=== PATIENT | female | born 1955 | race Caucasian/White ===

== ENCOUNTER 2021-01-16 15:25 | Inpatient (IN) ==
[2021-01-16] MEDS ORDERED: SODIUM CHLORIDE 0.9% 1000ML 1,000 ML IV ONE (16:16)
--- NOTE | 2021-01-16 16:22 | Emergency Department Note ---
Impression & Plan Stroke-like symptoms, History of stroke, History of carotid stenosis, Hypomagnesemia ED Provider Note NAME: MIAN WILLIAMSON AGE: 65 SEX: F ARRIVES VIA: Ambulance INFORMANT: Patient, Daughter ED PROVIDER(S): Puma Richmond MD CHIEF COMPLAINT: Stroke-like symptoms. PLAN: Disposition: Admit MEDICAL DECISION MAKING: The patient is a pleasant 65-year-old woman with a past medical history of CVA, carotid artery stenosis, hypertension, hyperlipidemia who presents emerge department, by her daughter with concern for strokelike symptoms which occurred when they were driving from the home in [place] to [place] to need help with other family but the daughter noticed while driving that the patient was awake but not responding to her questions and appeared to have increasing left sided facial droop with some slight drooling which suddenly resolved after 15 minutes. The patient's symptoms occur in the setting of the daughter reporting that she felt her left face was slightly more droopy than usual but thought maybe it was related to her poor night sleep and so the last known well is unclear. The daughter further reports that they were seen in urgent care last week in [place] for the patient's complaint of left facial numbness and tingling. Otherwise the patient's baseline does involve some chronic right upper and right lower extremity weakness for which she walks with a cane. Daughter reports that she also had some aphasia when she had her stroke in 2016 but this mostly resolved though from time to time will have difficulty responding to questions. At this time the patient is near her baseline with the exception of being unable to smile upon command which appears to be related to a degree of inability to understand though she follows all other commands. On arrival the patient is in no acute distress, afebrile stable vital signs. She appears clinically dry. She has difficulty it seems understanding her request to smile and she attempts to put her lips together to blow air. But otherwise she answers all questions appropriately. She has subtle residual right upper and right lower extremity weakness compared to left but is 4+/5. Given unclear last known well, with symptoms ongoing for days, no indication for stroke alert for TPA or endovascular treatment. EKG without overt acute ischemia. CXR negative for acute cardiopulmonary process. WBC and platelets wnl. H/H 11.4/33.7 without prior values for comparison. Glucose 170s and Chemistry without acidosis. Magnesium 1.7 and otherwise electr olytes unremarkable. LFTs without significant abnormality. Troponin negative/undetectable. UA pending. Covid-19 PCR negative. Influenza and RSV PCR negative. CT head without acute ICH or ischemia. Old large left MCA territory infarct appreciated. CTA head and neck performed and demonstrates extensive cerebrovascular disease but without large vessel occlusion. Patient and daughter agree with plan for admission for further stroke evaluation. Case was discussed with Dr. Alcantara [facility] hospitalist, who will evaluate the patient for admission. Triage Nursing notes reviewed and agree them. Prior medical records reviewed Vital Signs: reviewed and remarkable for no significant abnormalities Differential diagnosis: Infection, dehydration, metabolic abnormality, hypo/hyperglycemia, electrolyte disturbance, anemia, hypoxia, cardiac sources, intracerebral event, toxicologic, neurologic, as well as other pathologies. ER treatment provided: See below. Diagnostics interpreted by me: ECG: Sinus tachycardia, 109 bpm, no ectopy, RBBB, no overt ST elevation or depression. Cardiac Monitoring: An order for continuous cardiac monitoring was placed and demonstrated Sinus tachycardia, 109 bpm, no ectopy. Laboratory studies: See below Imaging studies: See below Consultation(s): Case was discussed with Dr. Alcantara, [facility] hospitalist, who will evaluate the patient for admission. HPI: The patient is a pleasant 65-year-old woman with a past medical history of CVA, carotid artery stenosis, hypertension, hyperlipidemia who presents emerge department, by her daughter with concern for strokelike symptoms which occurred when they were driving from the home in [place] to [place] to need help with other family but the daughter noticed while driving that the patient was awake but not responding to her questions and appeared to have increasing left sided facial droop with some slight drooling which suddenly resolved after 15 minutes. The patient's symptoms occur in the setting of the daughter reporting that she felt her left face was slightly more droopy than usual but thought maybe it was related to her poor night sleep and so the last known well is unclear. The daughter further reports that they were seen in urgent care last week in [place] for the patient's complaint of left facial numbness and tingling. Otherwise the patient's baseline does involve some chronic right upper and right lower extremity weakness for which she walks with a cane. Daughter reports that she also had some aphasia when she had her stroke in 2016 but this mostly resolved though from time to time will have difficulty respo nding to questions. At this time the patient is near her baseline with the exception of being unable to smile upon command which appears to be related to a degree of inability to understand though she follows all other commands. ROS: See above HPI for pertinent positives & negatives. A total of 10 systems reviewed and were otherwise negative. PAST MEDICAL HISTORY:See Below PAST SURGICAL HISTORY:See Below FAMILY HISTORY:See Below SOCIAL HISTORY:See Below HOME MEDICATIONS:See Below ALLERGIES:See Below VITALS:See Below PHYSICAL EXAMINATION: GENERAL: Awake, alert, well-appearing, in no distress HENT: Normocephalic, atraumatic. Oropharynx with dry mucous membranes and otherwise unremarkable. EYES: Normal conjunctiva. Sclera non-icteric. EOMI. No nystamgus. PEARRL. NECK: Supple. No nuchal rigidity. FROM. No JVD. RESPIRATORY: Clear to auscultation. CARDIAC: Tachycardic rate, normal rhythm. Extremities warm and well perfused. Pulses equal. ABDOMEN: Soft, non-distended. No tenderness to palpation. No rebound or guarding. No masses. RECTAL: Deferred. MUSCULOSKELETAL: Chest examination reveals no tenderness. The back is symmetrical on inspection without obvious abnormality. There is no CVA tenderness to palpation. No joint edema. LOWER EXTREMITIES: Calves are equal size bilaterally and non-tender. No edema. No discoloration. NEURO: Apparent difficulty understanding request to smile and she attempts to put her lips together to blow air. Subtle residual right upper and right lower extremity weakness compared to left but is 4+/5. LUE and LLE 5/5 strength. Mild blunting of left nasolabial fold at rest. No overt word finding difficulty. SKIN: No rash or jaundice noted. Puma Richmond MD Past Med/Surg History Medical History Essential (primary) hypertension History of carotid stenosis History of stroke 09/2016 - MCA territory on left; resulting right-sided hemiparesis Hyperlipidemia Tobacco dependence Surgical History History of appendectomy S/P carotid endarterectomy bilateral - 2016 - [facility] Family History Mother No problems noted. Father , 70s Parkinsons disease Social History Smoking Status: Current every day smoker Years Smoked: 30; Cigarettes Per Day: 1/2 pack; Hx Alcohol Use: No Hx Substance Use: No Preferred Language: Sinhala Communication Ability: Effective Beliefs That Will Affect Care: None marital status: marital status details: 2x's Current Living Situation: Spouse and Family Current Living Situation Comment: lives with 2nd & daughter in [facility]; originally from [place] current occupational status: retired current occupation: farm work How many Children do You have: 3 How many Children do You have Comment: 2 sons; 1 daughter Other Information That Helps Us Care for You: No Feels Safe at Home: Yes Safety Concerns: Feels Safe At This Time Assistive Devices: Cane Allergies Allergies Allergy/AdvReac Type Severity Reaction Status Date / Time No Known Allergies Allergy Unverified 01/16/21 15:53 Home Meds Home Medications Medication Instructions Recorded Confirmed amitriptyline 50 mg PO HS 01/16/21 01/16/21 amlodipine-benazepril 1 cap PO DAILY 01/16/21 01/16/21 aspirin 325 mg PO DAILY 01/16/21 01/16/21 atorvastatin 80 mg PO DAILY 01/16/21 01/16/21 docusate sodium 100 mg PO BID 01/16/21 01/16/21 fexofenadine 180 mg PO DAILY 01/16/21 01/16/21 fluticasone propionate 2 spray INTRANASAL DAILY 01/16/21 01/16/21 furosemide 40 mg PO DAILY PRN 01/16/21 01/16/21 gabapentin 600 mg PO DAILY 01/16/21 01/16/21 meloxicam 15 mg PO DAILY 01/16/21 01/16/21 multivitamin 1 tab PO DAILY 01/16/21 01/16/21 omeprazole 20 mg PO DAILY 01/16/21 01/16/21 polyethylene glycol 3350 17 g PO DAILY 01/16/21 01/16/21 Results & Data (ED) Vital Signs Vital Signs - 24 hr 01/16/21 15:32 01/16/21 15:33 01/16/21 17:00 Temperature 37.1 C Temperature Source Oral Pulse Rate 108 H 112 H 103 H Pulse Rate [Apical] 112 H Pulse Rate from SpO2 Sensor 108 H Respiratory Rate 23 20 26 H Respiratory Effort / Characteristics Non-Labored Spontaneous Respiratory Depth Normal Respiratory Pattern Regular Blood Pressure 130/68 130/68 Blood Pressure [Left Arm] 130/68 Blood Pressure Mean 88 88 Blood Pressure Mean [Left Arm] 88 Pulse Oximetry 96 96 Oxygen Delivery Method Room Air Sepsis Recent Fever Within 48 Hours No Sepsis New/Unexplained Change in Mental Status No Sepsis Action Taken by Nursing No Action Required 01/16/21 17:10 01/16/21 17:11 01/16/21 18:00 Temperature Temperature Source Pulse Rate 100 H 100 H 100 H Pulse Rate [Apical] Pulse Rate from SpO2 Sensor 99 H 100 H Respiratory Rate 12 29 H 17 Respiratory Effort / Characteristics Respiratory Depth Respiratory Pattern Blood Pressure 126/73 120/86 Blood Pressure [Left Arm] Blood Pressure Mean 90 97 Blood Pressure Mean [Left Arm] Pulse Oximetry 96 94 Oxygen Delivery Method Sepsis Recent Fever Within 48 Hours Sepsis New/Unexplained Change in Mental Status Sepsis Action Taken by Nursing 01/16/21 18:01 01/16/21 18:06 01/16/21 18:08 Temperature Temperature Source Pulse Rate 103 H 101 H 99 H Pulse Rate [Apical] Pulse Rate from SpO2 Sensor 102 H 102 H Respiratory Rate 19 25 H 17 Respiratory Effort / Characteristics Respiratory Depth Respiratory Pattern Blood Pressure 180/101 H 96/69 L Blood Pressure [Left Arm] Blood Pressure Mean 127 78 Blood Pressure Mean [Left Arm] Pulse Oximetry 95 84 L Oxygen Delivery Method Sepsis Recent Fever Within 48 Hours Sepsis New/Unexplained Change in Mental Status Sepsis Action Taken by Nursing Laboratory Data Attestation: I reviewed the patient's lab results. Result diagrams: 01/16/21 15:45 01/16/21 15:45 Lab Results 01/16/21 01/16/21 01/16/21 Range/Units 15:45 15:45 15:45 WBC 9.43 (4.8-10.8) K/uL RBC 4.11 L (4.2-5.4) M/uL Hgb 11.4 L (12.0-16.0) g/dL POC Hgb (12.0-16.0) g/dl Hct 33.7 L (37-47) % POC Hct (37-47) % MCV 82.0 (80-100) fL MCH 27.7 (25-34) pg MCHC 33.8 (32-36) g/dL RDW Std Deviation 46.8 H (36.4-46.3) fL RDW Coeff of Maribeth 15.7 H (11.5-14.5) % Plt Count 377 (130-400) K/uL MPV 10.3 (7.4-10.4) fL Immature Gran % (Auto) 0.2 % Neut % (Auto) 69.7 % Lymph % (Auto) 23.1 % [place] % (Auto) 4.5 % Eos % (Auto) 2.2 % Baso % (Auto) 0.3 % Neut # (Auto) 6.57 H (1.4-6.5) K/uL Lymph # (Auto) 2.18 (1.2-3.4) K/uL [place] # (Auto) 0.42 (0.11-0.59) K/uL Eos # (Auto) 0.21 (0-0.5) K/uL Baso # (Auto) 0.03 (0-0.2) K/uL Immature Gran # (Auto) 0.02 (0.00-0.02) K/uL ESR (0-21) mm/hr PT 10.3 (9.0-12.0) Seconds INR 1.0 (0.9-1.1) APTT 23.4 (21.0-31.0) Seconds PTT Ratio 0.9 POC Sodium (135-144) mmol/L Sodium 139 (136-145) mmol/L POC Potassium (3.3-5.0) mmol/L Potassium 3.8 (3.5-5.1) mmol/L POC Chloride (101-112) mmol/L Chloride 105 (98-107) mmol/L Carbon Dioxide 28 (21-32) mmol/L POC Total CO2 (24-31) mmol/L Anion Gap 6.0 (3-11) POC Anion Gap (16-25) mmol/L POC BUN (7-18) mg/dl BUN 16 (7-18) mg/dl Creatinine 1.05 (0.6-1.2) mg/dl POC Creatinine (0.6-1.3) mg/dl Est Cr Clr Drug Dosing 52.0 ml/min Est GFR ( Amer) 64.5 Est GFR (Non-Af Amer) 55.7 BUN/Creatinine Ratio 15.0 (10-20) Glucose 177 H (70-99) mg/dl POC Glucose (other) (70-99) mg/dl Calcium 9.2 (8.5-10.1) mg/dl POC Ioniz Calcium Yousuf (1.12-1.32) mmol/l Phosphorus 3.1 (2.5-4.9) mg/dl Magnesium 1.7 L (1.8-2.4) mg/dl Total Bilirubin 0.2 (0.2-1) mg/dl AST 12 L (15-37) U/L ALT 26 (12-78) U/L Alkaline Phosphatase 161 H (45-117) U/L Troponin I < 0.015 (0-0.045) ng/ml C-Reactive Protein < 0.29 (0-0.29) mg/dl Total Protein 6.9 (6.4-8.2) gm/dl Albumin 3.2 L (3.4-5.0) gm/dl Globulin 3.7 (2.5-4.0) gm/dl Albumin/Globulin Ratio 0.9 (0.9-2) TSH 2.320 (0.300-4.500) uIu/ml COVID-19 Eval Order SARS-CoV-2 (PCR) (Negative) Influenza Type A (PCR) (Neg) Influenza Type B (PCR) (Neg) RSV (RT-PCR) (Neg) 01/16/21 01/16/21 01/16/21 Range/Units 15:45 16:22 16:41 WBC (4.8-10.8) K/uL RBC (4.2-5.4) M/uL Hgb (12.0-16.0) g/dL POC Hgb 11.9 L (12.0-16.0) g/dl Hct (37-47) % POC Hct 35 L (37-47) % MCV (80-100) fL MCH (25-34) pg MCHC (32-36) g/dL RDW Std Deviation (36.4-46.3) fL RDW Coeff of Maribeth (11.5-14.5) % Plt Count (130-400) K/uL MPV (7.4-10.4) fL Immature Gran % (Auto) % Neut % (Auto) % Lymph % (Auto) % [place] % (Auto) % Eos % (Auto) % Baso % (Auto) % Neut # (Auto) (1.4-6.5) K/uL Lymph # (Auto) (1.2-3.4) K/uL [place] # (Auto) (0.11-0.59) K/uL Eos # (Auto) (0-0.5) K/uL Baso # (Auto) (0-0.2) K/uL Immature Gran # (Auto) (0.00-0.02) K/uL ESR 19 (0-21) mm/hr PT (9.0-12.0) Seconds INR (0.9-1.1) APTT (21.0-31.0) Seconds PTT Ratio POC Sodium 139 (135-144) mmol/L Sodium (136-145) mmol/L POC Potassium 3.6 (3.3-5.0) mmol/L Potassium (3.5-5.1) mmol/L POC Chloride 102 (101-112) mmol/L Chloride (98-107) mmol/L Carbon Dioxide (21-32) mmol/L POC Total CO2 28 (24-31) mmol/L Anion Gap (3-11) POC Anion Gap 14.0 L (16-25) mmol/L POC BUN 17 (7-18) mg/dl BUN (7-18) mg/dl Creatinine (0.6-1.2) mg/dl POC Creatinine 1.0 (0.6-1.3) mg/dl Est Cr Clr Drug Dosing ml/min Est GFR ( Amer) Est GFR (Non-Af Amer) BUN/Creatinine Ratio (10-20) Glucose (70-99) mg/dl POC Glucose (other) 165 H (70-99) mg/dl Calcium (8.5-10.1) mg/dl POC Ioniz Calcium Yousuf 1.27 (1.12-1.32) mmol/l Phosphorus (2.5-4.9) mg/dl Magnesium (1.8-2.4) mg/dl Total Bilirubin (0.2-1) mg/dl AST (15-37) U/L ALT (12-78) U/L Alkaline Phosphatase (45-117) U/L Troponin I (0-0.045) ng/ml C-Reactive Protein (0-0.29) mg/dl Total Protein (6.4-8.2) gm/dl Albumin (3.4-5.0) gm/dl Globulin (2.5-4.0) gm/dl Albumin/Globulin Ratio (0.9-2) TSH (0.300-4.500) uIu/ml COVID-19 Eval Order [facility]Rsv at [facility] SARS-CoV-2 (PCR) (Negative) Influenza Type A (PCR) (Neg) Influenza Type B (PCR) (Neg) RSV (RT-PCR) (Neg) 01/16/21 Range/Units 16:41 WBC (4.8-10.8) K/uL RBC (4.2-5.4) M/uL Hgb (12.0-16.0) g/dL POC Hgb (12.0-16.0) g/dl Hct (37-47) % POC Hct (37-47) % MCV (80-100) fL MCH (25-34) pg MCHC (32-36) g/dL RDW Std Deviation (36.4-46.3) fL RDW Coeff of Maribeth (11.5-14.5) % Plt Count (130-400) K/uL MPV (7.4-10.4) fL Immature Gran % (Auto) % Neut % (Auto) % Lymph % (Auto) % [place] % (Auto) % Eos % (Auto) % Baso % (Auto) % Neut # (Auto) (1.4-6.5) K/uL Lymph # (Auto) (1.2-3.4) K/uL [place] # (Auto) (0.11-0.59) K/uL Eos # (Auto) (0-0.5) K/uL Baso # (Auto) (0-0.2) K/uL Immature Gran # (Auto) (0.00-0.02) K/uL ESR (0-21) mm/hr PT (9.0-12.0) Seconds INR (0.9-1.1) APTT (21.0-31.0) Seconds PTT Ratio POC Sodium (135-144) mmol/L Sodium (136-145) mmol/L POC Potassium (3.3-5.0) mmol/L Potassium (3.5-5.1) mmol/L POC Chloride (101-112) mmol/L Chloride (98-107) mmol/L Carbon Dioxide (21-32) mmol/L POC Total CO2 (24-31) mmol/L Anion Gap (3-11) POC Anion Gap (16-25) mmol/L POC BUN (7-18) mg/dl BUN (7-18) mg/dl Creatinine (0.6-1.2) mg/dl POC Creatinine (0.6-1.3) mg/dl Est Cr Clr Drug Dosing ml/min Est GFR ( Amer) Est GFR (Non-Af Amer) BUN/Creatinine Ratio (10-20) Glucose (70-99) mg/dl POC Glucose (other) (70-99) mg/dl Calcium (8.5-10.1) mg/dl POC Ioniz Calcium Yousuf (1.12-1.32) mmol/l Phosphorus (2.5-4.9) mg/dl Magnesium (1.8-2.4) mg/dl Total Bilirubin (0.2-1) mg/dl AST (15-37) U/L ALT (12-78) U/L Alkaline Phosphatase (45-117) U/L Troponin I (0-0.045) ng/ml C-Reactive Protein (0-0.29) mg/dl Total Protein (6.4-8.2) gm/dl Albumin (3.4-5.0) gm/dl Globulin (2.5-4.0) gm/dl Albumin/Globulin Ratio (0.9-2) TSH (0.300-4.500) uIu/ml COVID-19 Eval Order SARS-CoV-2 (PCR) NEGATIVE (Negative) Influenza Type A (PCR) Negative (Neg) Influenza Type B (PCR) Negative (Neg) RSV (RT-PCR) Negative (Neg) Administered Medications Amitriptyline HCl (Amitriptyline Hcl 50 Mg Tab) 50 mg PO HS ROD Stop: 02/15/21 20:59 Last Admin: 01/16/21 21:01 Dose: Not Given Documented by: [id number] Docusate Sodium (Docusate Sodium 100 Mg Cap) 100 mg PO BID ROD Stop: 02/15/21 20:59 Last Admin: 01/16/21 21:01 Dose: Not Given Documented by: [id number] Enoxaparin Sodium (Enoxaparin Inj 40 Mg/0.4 Ml Syr) 40 mg SQ Q24H ROD Stop: 02/15/21 20:59 Last Admin: 01/16/21 21:01 Dose: 40 mg Documented by: [id number] Potassium Chloride/Sodium Chloride (Normal Saline W/20 Meq Kcl) 20 meq in 1,000 mls @ 100 mls/hr IV .Q10H ROD Stop: 02/15/21 19:40 Last Admin: 01/16/21 21:00 Dose: 100 mls/hr Documented by: [id number] Discontinued Medications Sodium Chloride (Nss 1000ml) 1,000 mls @ 999 mls/hr IV .Q1H1M ONE Stop: 01/16/21 17:16 Last Infusion: 01/16/21 18:41 Dose: 0 mls/hr Documented by: [id number] Admin: 01/16/21 17:27 Dose: 999 mls/hr Documented by: [id number] Magnesium Sulfate/Dextrose (Magnesium Sulfate / D5w) 1 gm in 100 mls @ 100 mls/hr IV NOW STA Stop: 01/16/21 19:14 Last Admin: 01/16/21 22:07 Dose: Not Given Documented by: [id number] Magnesium Sulfate/Dextrose (Magnesium Sulfate / D5w) 1 gm in 100 mls @ 100 mls/hr IV 2100 ONE Stop: 01/16/21 21:59 Last Infusion: 01/16/21 22:05 Dose: 0 mls/hr Documented by: [id number] Admin: 01/16/21 21:00 Dose: 100 mls/hr Documented by: [id number] Ioversol (Optiray 320 125ml) 119 ml IV ONCE ONE Stop: 01/16/21 16:32 Last Admin: 01/16/21 16:32 Dose: 119 ml Documented by: [id number] Imaging Data Radiologist's Impression: Chest X-Ray 01/16/21 16:12 XR chest 1V portable CLINICAL HISTORY: Stroke Like Symptoms COMPARISON STUDY: No previous studies for comparison. FINDINGS: Lung volumes are normal. Lungs are clear. There is no pneumothorax or pleural effusion. Cardiac size is normal. Mediastinal contours are normal. There is no evidence for pulmonary edema. Incidental note is made of severe osteoarthritis of the bilateral glenohumeral joints. IMPRESSION: No acute cardiopulmonary findings. ACT 112: Negative or not required by law. Electronically signed by: Miguel Angel Sutton M.D. 01/16/2021 4:[address] 01/16/21 16:12 CT OF THE HEAD WITHOUT CONTRAST CLINICAL HISTORY: Stroke Like Symptoms COMPARISON STUDY: No previous studies for comparison. CT DOSE: 1388.94 mGy.cm TECHNIQUE: Helical axial images of the head were obtained without IV contrast. Automated exposure control was utilized for the study. A dose lowering technique was utilized adhering to the principles of ALARA. FINDINGS: No acute intracranial hemorrhage, midline shift or mass effect is present. Note is made of an old large left MCA territory infarct with encephalomalacia. There is associated mild dilatation of the left lateral ventricle. Basal cisterns are patent. There are no extra axial collections. There are no findings to suggest acute dural sinus stenosis or acute territorial infarct. There are no significant calvarial abnormalities. IMPRESSION: 1. Old large left MCA territory infarct. 2. No acute intracranial findings. ACT 112: Negative or not required by law. Electronically signed by: Miguel Angel Sutton M.D. 01/16/2021 4:46 PM Head CTA 01/16/21 16:12 CTA ANGIOGRAPHY OF THE HEAD CLINICAL HISTORY: Stroke Like Symptoms COMPARISON STUDY: No previous studies for comparison. TECHNIQUE: Helical axial images of the head were obtained following uneventful intravenous administration of 119 cc of Optiray 320. Sagittal and coronal reconstructions were viewed as well as maximal intensity projections on an independent 3-D workstation. Automated exposure control was utilized for the study. A dose lowering technique was utilized adhering to the principles of A CHRISTELLE. FINDINGS: No acute intracranial hemorrhage, midline shift or mass effect is present. Encephalomalacia within the left MCA territory represents old infarct. There is associated mild dilatation of the left lateral ventricle. The distal cervical and intracranial portion of the right internal carotid artery is diminutive with multifocal stenoses. The right M1, M2, A1 and A2 segments are patent. There is moderate plaque within the left cavernous carotid with mild stenosis. The left M1, M2, A1 and A2 segments are patent. There is severe stenosis of the distal left vertebral artery. The basilar artery is diminutive. The bilateral posterior cerebral arteries are patent. No central vessel occlusion is identified on this exam. There is no intracranial aneurysm. IMPRESSION: 1. Asymmetric decreased caliber of the distal cervical and intracranial portion of the right internal carotid artery with multifocal stenoses. 2. Severe stenosis of the distal left vertebral artery. 3. No central vessel occlusion. 4. Extensive atherosclerotic plaque within the intracranial vessels. 5. Old left MCA territory infarct. ACT 112: Negative or not required by law. Electronically signed by: Miguel Angel Sutton M.D. 01/16/2021 5:03 PM Neck CTA 01/16/21 16:12 CT ANGIOGRAPHY OF THE NECK WITH CONTRAST CLINICAL HISTORY: Stroke Like Symptoms COMPARISON STUDY: No previous studies for comparison. Technique: CT angiography of the carotid and vertebral arteries was obtained using Vibes 320 IV and 3D reconstruction on an independent workstation. NASCET criteria was utilized. Automated exposure control was utilized for the study. A dose lowering technique was utilized adhering to the principles of ALARA. Findings: Mild emphysema is noted within the lung apices. There is no cervical lymphadenopathy. There is no acute cervical spine fracture. There is extensive atherosclerotic plaque of the proximal to mid aortic arch, partially imaged on this exam. There is extensive plaque at the origins of the brachiocephalic trunk, left common carotid and left subclavian arteries with at least moderate stenosis of these vessels. There is severe stenosis at the origin of the right subclavian artery as well as the origin of the right vertebral artery. There is diffuse narrowing with multifocal stenoses within the right common carotid, cervical internal carotid and external carotid arteries. The cervical portion of the left internal carotid artery contains moderate plaque without significant stenosis. There is no dissection within the major vessels of the neck. IMPRESSION: 1. Extensive atherosclerotic plaque within the major vessels of the neck, as described above, including the origins of the brachiocephalic, left common carotid and bilateral subclavian arteries with at least moderate stenoses of these vessels, suboptimally assessed on this exam due to artifact. 2. Diffuse narrowing with multifocal stenoses within the right common carotid, cervical internal carotid and external carotid arteries. 3. Moderate plaque within the cervical left internal carotid artery without significant stenosis. ACT 112: Negative or not required by law. Electronically signed by: Miguel Angel Sutton M.D. 01/16/2021 4:59 PM Carotid Doppler Study 01/16/21 18:15 CAROTID ARTERY ULTRASOUND CLINICAL HISTORY: TIAs, known ICA stenosis, drop attacks COMPARISON STUDY: CTA of the neck performed earlier today. TECHNIQUE: Real-time, grayscale, and color Doppler sonography of the carotid and vertebral arteries was performed. Images were viewed in the transverse and longitudinal planes. FINDINGS: Extensive atherosclerotic plaque is noted within the right common carotid and right cervical internal carotid arteries. Dampened flow within these vessels is noted. No elevated velocities are identified however CTA demonstrates multifocal stenoses within these vessels. Evaluation by sonography is difficult. Elevated velocities within the left common carotid artery are noted ranging up to 362 cm/s. Peak systolic velocity within the left internal carotid arteries 200 cm/s. The systolic ratio between the left internal to common carotid artery is normal. Blood pressure could not be obtained due to limb restrictions. IMPRESSION: Technically difficult exam given extensive atherosclerotic plaque within the bilateral common carotid and cervical internal carotid arteries, greater on the right. Multifocal stenoses within these vessels better depicted on CTA performed earlier today. ACT 112: Negative or not required by law. Electronically signed by: Miguel Angel Sutton M.D. 01/16/2021 7:27 PM Discharge Plan Visit Data Chief Complaint: Syncope (Near Syncope) Stated Complaint: SYNCOPE ED Provider: Puma [place] Discharge Problem: Stroke-like symptoms, History of stroke, History of carotid stenosis, Hypomagnesemia Patient Disposition: Admitted As Inpatient Discharge Instructions Interventions: ED Discharge Assessment Last Done: 01/16/21 19:18
[2021-01-16 16:27] LABS: Basophils # (auto) 0.03 K/uL (0-0.2); Basophils % (auto) 0.3 %; Eosinophils # (auto) 0.21 K/uL (0-0.5); Eosinophils % (auto) 2.2 %; Hematocrit (blood only) 33.7 % (37-47); Hemoglobin 11.4 g/dL (12.0-16.0); Immature Granulocytes # (auto) 0.02 K/uL (0.00-0.02); Immature Granulocytes % (auto) 0.2 %; Lymphocytes # (auto) 2.18 K/uL (1.2-3.4); Lymphocytes % (auto) 23.1 %; Mean Corpuscular Hemoglobin 27.7 pg (25-34); Mean Corpuscular Hgb Conc 33.8 g/dL (32-36); Mean Platelet Volume 10.3 fL (7.4-10.4); Monocytes # (auto) 0.42 K/uL (0.11-0.59); Monocytes % (auto) 4.5 %; Neutrophils # (auto) 6.57 K/uL (1.4-6.5); Neutrophils % (auto) 69.7 %; Platelet Count 377 K/uL (130-400); RDW Coefficient of Variation 15.7 % (11.5-14.5); RDW Standard Deviation 46.8 fL (36.4-46.3); Red Blood Count 4.11 M/uL (4.2-5.4); White Blood Count 9.43 K/uL (4.8-10.8)
[2021-01-16] MEDS ORDERED: OPTIRAY 320 125ml IV ONE (16:31)
[2021-01-16 16:35] LABS: Alanine Aminotransferase 26 U/L (12-78); Albumin Level 3.2 gm/dl (3.4-5.0); Aspartate Aminotransferase 12 U/L (15-37); Blood Urea Nitrogen 16 mg/dl (7-18); Calcium 9.2 mg/dl (8.5-10.1); Carbon Dioxide 28 mmol/L (21-32); Chloride 105 mmol/L (98-107); Est GFR (African American) 64.5; Est GFR (Non-African American) 55.7; Glucose 177 mg/dl (70-99); Magnesium 1.7 mg/dl (1.8-2.4); Potassium 3.8 mmol/L (3.5-5.1); Sodium 139 mmol/L (136-145)
[2021-01-16 16:35] LABS: iSTAT Hemoglobin 11.9 g/dl (12.0-16.0); iSTAT Ionized Calcium 1.27 mmol/l (1.12-1.32); iSTAT Potassium 3.6 mmol/L (3.3-5.0)
[2021-01-16 16:37] LABS: Partial Thromboplastin Ratio 0.9; Partial Thromboplastin Time 23.4 Seconds (21.0-31.0); Prothrombin Time 10.3 Seconds (9.0-12.0)
--- NOTE | 2021-01-16 16:47 | CT Scan Report ---
CT OF THE HEAD WITHOUT CONTRAST CLINICAL HISTORY: Stroke Like Symptoms COMPARISON STUDY: No previous studies for comparison. CT DOSE: 1388.94 mGy.cm TECHNIQUE: Helical axial images of the head were obtained without IV contrast. Automated exposure con trol was utilized for the study. A dose lowering technique was utilized adhering to the principles o f ALARA. FINDINGS: No acute intracranial hemorrhage, midline shift or mass effect is present. Note is made of an old large left MCA territory infarct with encephalomalacia. There is associated mild dilatation of the left lateral ventricle. Basal cisterns are patent. There are no extra axial collections. There a re no findings to suggest acute dural sinus stenosis or acute territorial infarct. There are no signi ficant calvarial abnormalities. IMPRESSION: 1. Old large left MCA territory infarct. 2. No acute intracranial findings. ACT 112: Negative or not required by law. Electronically signed by: Miguel Angel Sutton M.D. 01/16/2021 4:46 PM
[2021-01-16 16:48] LABS: Albumin Globulin Ratio 0.9 (0.9-2); Alkaline Phosphatase 161 U/L (45-117); Bilirubin,Total 0.2 mg/dl (0.2-1); Globulin 3.7 gm/dl (2.5-4.0); Phosphorus 3.1 mg/dl (2.5-4.9); Total Protein 6.9 gm/dl (6.4-8.2); Troponin I < 0.015 ng/ml (0-0.045)
--- NOTE | 2021-01-16 16:48 | XRay Report ---
XR chest 1V portable CLINICAL HISTORY: Stroke Like Symptoms COMPARISON STUDY: No previous studies for comparison. FINDINGS: Lung volumes are normal. Lungs are clear. There is no pneumothorax or pleural effusion. Car diac size is normal. Mediastinal contours are normal. There is no evidence for pulmonary edema. Incid ental note is made of severe osteoarthritis of the bilateral glenohumeral joints. IMPRESSION: No acute cardiopulmonary findings. ACT 112: Negative or not required by law. Electronically signed by: Miguel Angel Sutton M.D. 01/16/2021 4:46 PM
--- NOTE | 2021-01-16 17:01 | CT Scan Report ---
CT ANGIOGRAPHY OF THE NECK WITH CONTRAST CLINICAL HISTORY: Stroke Like Symptoms COMPARISON STUDY: No previous studies for comparison. Technique: CT angiography of the carotid and vertebral arteries was obtained using [employer] 320 IV and 3D reconstruction on an independent workstation. NASCET criteria was utilized. Automated exposure c ontrol was utilized for the study. A dose lowering technique was utilized adhering to the principles of ALARA. Findings: Mild emphysema is noted within the lung apices. There is no cervical lymphadenopathy. There is no acute cervical spine fracture. There is extensive atherosclerotic plaque of the proximal to mi d aortic arch, partially imaged on this exam. There is extensive plaque at the origins of the brachio cephalic trunk, left common carotid and left subclavian arteries with at least moderate stenosis of t hese vessels. There is severe stenosis at the origin of the right subclavian artery as well as the or igin of the right vertebral artery. There is diffuse narrowing with multifocal stenoses within the ri ght common carotid, cervical internal carotid and external carotid arteries. The cervical portion of the left internal carotid artery contains moderate plaque without significant stenosis. There is no d issection within the major vessels of the neck. IMPRESSION: 1. Extensive atherosclerotic plaque within the major vessels of the neck, as described above, includi ng the origins of the brachiocephalic, left common carotid and bilateral subclavian arteries with at least moderate stenoses of these vessels, suboptimally assessed on this exam due to artifact. 2. Diffuse narrowing with multifocal stenoses within the right common carotid, cervical internal corado tid and external carotid arteries. 3. Moderate plaque within the cervical left internal carotid artery without significant stenosis. ACT 112: Negative or not required by law. Electronically signed by: Miguel Angel Sutton M.D. 01/16/2021 4:59 PM
--- NOTE | 2021-01-16 17:05 | CT Scan Report ---
CTA ANGIOGRAPHY OF THE HEAD CLINICAL HISTORY: Stroke Like Symptoms COMPARISON STUDY: No previous studies for comparison. TECHNIQUE: Helical axial images of the head were obtained following uneventful intravenous administr ation of 119 cc of Optiray 320. Sagittal and coronal reconstructions were viewed as well as maximal i ntensity projections on an independent 3-D workstation. Automated exposure control was utilized for the study. A dose lowering technique was utilized adhering to the principles of ALARA. FINDINGS: No acute intracranial hemorrhage, midline shift or mass effect is present. Encephalomalacia within the left MCA territory represents old infarct. There is associated mild dilatation of the lef t lateral ventricle. The distal cervical and intracranial portion of the right internal carotid arter y is diminutive with multifocal stenoses. The right M1, M2, A1 and A2 segments are patent. There is m oderate plaque within the left cavernous carotid with mild stenosis. The left M1, M2, A1 and A2 segme nts are patent. There is severe stenosis of the distal left vertebral artery. The basilar artery is d iminutive. The bilateral posterior cerebral arteries are patent. No central vessel occlusion is ident ified on this exam. There is no intracranial aneurysm. IMPRESSION: 1. Asymmetric decreased caliber of the distal cervical and intracranial portion of the right internal carotid artery with multifocal stenoses. 2. Severe stenosis of the distal left vertebral artery. 3. No central vessel occlusion. 4. Extensive atherosclerotic plaque within the intracranial vessels. 5. Old left MCA territory infarct. ACT 112: Negative or not required by law. Electronically signed by: Miguel Angel Sutton M.D. 01/16/2021 5:03 PM
[2021-01-16 17:22] LABS: Influenza A virus by PCR Negative (Neg); Influenza B virus by PCR Negative (Neg); RSV by PCR Negative (Neg); SARS CoV2 RNA(COVID-19) InHosp NEGATIVE (Negative)
[2021-01-16] MEDS ORDERED: MAGNESIUM SULFATE / D5W 1 GM/100 ML BAG IV STA (18:15)
[2021-01-16 18:43] LABS: C Reactive Protein < 0.29 mg/dl (0-0.29)
--- NOTE | 2021-01-16 19:28 | Ultrasound Report ---
CAROTID ARTERY ULTRASOUND CLINICAL HISTORY: TIAs, known ICA stenosis, drop attacks COMPARISON STUDY: CTA of the neck performed earlier today. TECHNIQUE: Real-time, grayscale, and color Doppler sonography of the carotid and vertebral arteries w as performed. Images were viewed in the transverse and longitudinal planes. FINDINGS: Extensive atherosclerotic plaque is noted within the right common carotid and right cervical internal carotid arteries. Dampened flow within these vessels is noted. No elevated velocities are identified however CTA demonstrates multifocal stenoses within these vessels. Evaluation by sonography is diffi cult. Elevated velocities within the left common carotid artery are noted ranging up to 362 cm/s. Pea k systolic velocity within the left internal carotid arteries 200 cm/s. The systolic ratio between th e left internal to common carotid artery is normal. Blood pressure could not be obtained due to limb restrictions. IMPRESSION: Technically difficult exam given extensive atherosclerotic plaque within the bilateral c ommon carotid and cervical internal carotid arteries, greater on the right. Multifocal stenoses withi n these vessels better depicted on CTA performed earlier today. ACT 112: Negative or not required by law. Electronically signed by: Miguel Angel Sutton M.D. 01/16/2021 7:27 PM
[2021-01-16] MEDS ORDERED: ONDANSETRON INJ 2 MG/ML 2 ML VIAL IV PRN (19:41)
[2021-01-16] MEDS ORDERED: ACETAMINOPHEN 325 MG TAB PO PRN (19:41)
[2021-01-16] MEDS ORDERED: FUROSEMIDE 40 MG TAB PO PRN (19:41)
[2021-01-16] MEDS ORDERED: PHARMACIST DISCHARGE MED REC CONSULT PRN (19:41)
--- NOTE | 2021-01-16 20:59 | History & Physical Report ---
Date of Service January 16, 2021 Assessment & Plan (1) TIA (transient ischemic attack): I am concerned that today's events were 2nd to TIA. Seizure is possible but less likely. She had altered mental status, left facial droop, etc. She has known ICA stenosis and CTA head/neck today demonstrate significant PAD of multiple vessels including but not limited to the carotids, subclavians, etc. MRI brain - r/o stroke. Will obtain additional imaging of carotids with dopplers. Check lipids in am. Check a1c in am. PT, OT, speech evals. Echo to r/o thrombus, PFO, etc. Telemetry. Neuro consult requested. Vascular surgery consult requested to evaluate her carotids in light of today's events. I am also concerned she may have subclavian steal phenomenon given her vertebral artery stenosis, subclavian stenosis, and the recent episodes of dizziness/near- syncope. Continue aspirin/statin in meantime. Consider EEG. (2) Jaw pain, non-TMJ: x 1 week. Right ear discomfort/numbness, posterior auricular numbness, right jaw discomfort, right teeth pain. Sed rate/crp wnl; doubt temporal arteritis. No evidence of sinusitis or dental abscess. This is not entirely c/w trigeminal neuralgia as she has no V1 symptoms. Small brainstem stroke causing these symptoms? MRI brain ordered. Neurology consult for their opinion. (3) History of stroke: Left MCA territory stroke, 2016, with resulting right sided hemiparesis. Continue aspirin 325mg daily. Continue lipitor 80mg daily. Check MRI brain given today's events. Other w/u as above. (4) History of carotid stenosis: s/p b/l CEA in 2017. Now with CTA evidence of significant stenosis especially on right. Carotid duplex study also ordered. Vascular surgery consult as above. Continue aspirin, statin. Desperately needs to quit smoking. (5) Essential (primary) hypertension: Due to her right-sided high-grade subclavian stenosis her BPs in the right arm are markedly low. Thus, will use LEFT ARM for BPs only. Continue home meds including amlodipine and DONTRELL. (6) Hyperlipidemia: Statin. Check lipids AM. (7) Tobacco dependence: Roll On Man to quit. Nicoderm patch 14mg/day. (8) Subclavian arterial stenosis: b/l, but high grade on right based on CTA today. I am concerned she could have subclavian steal phenomenon - see above. Vascular surgery consult. (9) Vertebral artery stenosis: severe stenosis, left vertebral artery, based on today's studies (10) GERD (gastroesophageal reflux disease): PPI (11) Neuropathy: continue usual meds including elavil and gabapentin at home doses (12) Hypomagnesemia: mag sulfate 1gm IV x 1 repeat mag level am (13) DVT prophylaxis: lovenox History of Present Illness Chief Complaint: left facial droop, altered mental status, several days of right ear numbness/discomfort Primary Care Provider: ANNA MARIE Black 65yo female with history of left-sided MCA territory stroke in 09/2016 with resulting right-sided hemiparesis - s/p b/l CEAs due to severe ICA stenosis (95% on left, 90% on right per daughter - ongoing tobacco dependence, HTN, and hyperlipidemia presents with her daughter due to a host of symptoms. Symptoms began last January 08. At that time she noted numbness over the right outside of the right ear. This spread to the posterior auricular region and upper lateral right neck. She noted a right frontal headache at that time along with pain in her right jaw/teeth. She noted painful chewing but only on the right side of the oral cavity. She never had left-sided facial symptoms. Headache resolved by January 09. She never had right eye symptoms - no discomfort/pain, no ptosis, no injection, no visual loss. She was seen by an urgent care in [place], [place] on that Sunday and was told to f/u with her PCP. Dental abscess was ruled out at that time. January 10 she was seen by her PCP. It sounds as if blood work and a carotid duplex were ordered due to the symptoms reported. 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 As the week went on she continued to have numbness over the right ear region, continued having pain with chewing (right side of mouth only), and the teeth were still bothering her. January 15 - daughter noted her mother was very sleepy. Daughter finally got the carotid doppler results and was told her mother had significant blockages again. Today the patient and her daughter drove from [place] to [place] [place]. 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 While in the car the daughter noted that her mother's left face looked droopy. She also thought her mother had tongue deviation. Speech was modestly slurry. She at one point was drooling a little as well. Finally, she had several minutes of not responding to her name being called. Her eyes were open during the event. She had no seizure activity. At that point the daughter brought her to the hospital for evaluation. Finally, the patient has had several episodes of dizziness/lightheadedness over the last couple of weeks. In ER I performed b/l upper extremity pressures and the left was significantly higher than the right (70 point difference). Allergies Allergy/AdvReac Type Severity Reaction Status Date / Time No Known Allergies Allergy Unverified 01/16/21 15:53 Home Medications Medication Instructions Recorded Confirmed Type amitriptyline 50 mg PO HS 01/16/21 01/16/21 History amlodipine-benazepril 1 cap PO DAILY 01/16/21 01/16/21 History aspirin 325 mg PO DAILY 01/16/21 01/16/21 History atorvastatin 80 mg PO DAILY 01/16/21 01/16/21 History docusate sodium 100 mg PO BID 01/16/21 01/16/21 History fexofenadine 180 mg PO DAILY 01/16/21 01/16/21 History fluticasone propionate 2 spray INTRANASAL DAILY 01/16/21 01/16/21 History furosemide 40 mg PO DAILY PRN 01/16/21 01/16/21 History gabapentin 600 mg PO DAILY 01/16/21 01/16/21 History meloxicam 15 mg PO DAILY 01/16/21 01/16/21 History multivitamin 1 tab PO DAILY 01/16/21 01/16/21 History omeprazole 20 mg PO DAILY 01/16/21 01/16/21 History polyethylene glycol 3350 17 g PO DAILY 01/16/21 01/16/21 History Past Med/Surg History Medical History (Updated 01/16/21 @ 22:03 by Antonio Alcantara) Essential (primary) hypertension History of carotid stenosis History of stroke 09/2016 - MCA territory on left; resulting right-sided hemiparesis Hyperlipidemia Tobacco dependence Surgical History (Updated 01/16/21 @ 20:55 by Antonio Alcantara) History of appendectomy S/P carotid endarterectomy bilateral - 2017 - [facility] Family History (Updated 01/16/21 @ 20:56 by Antonio Alcantara) Mother No problems noted. Father , 70s Parkinsons disease Social History (Updated 01/16/21 @ 20:57 by Antonio Alcantara) Smoking Status: Current every day smoker Years Smoked: 30; Cigarettes Per Day: 1/2 pack; Hx Alcohol Use: No Hx Substance Use: No Preferred Language: Nigerien Communication Ability: Effective Beliefs That Will Affect Care: None marital status: marital status details: 2x's Current Living Situation: Spouse and Family Current Living Situation Comment: lives with 2nd & daughter in [facility]; originally from [email or web address] current occupational status: retired current occupation: farm work How many Children do You have: 3 How many Children do You have Comment: 2 sons; 1 daughter Other Information That Helps Us Care for You: No Feels Safe at Home: Yes Safety Concerns: Feels Safe At This Time Assistive Devices: Cane Review of Systems Constitutional: + fatigue; no fever, no chills, no anorexia and no weight loss Eyes: no worsening vision Ear, Nose, Mouth, Throat: no nasal congestion, no sore throat and no dysphagia no loss of taste or smell Respiratory: + dyspnea on exertion (chronic ) and + wheezing; no cough Cardiovascular: + dyspnea on exertion; no chest pain and no edema Gastrointestinal: no abdominal pain, no vomiting and no diarrhea/loose stools Genitourinary: + difficulty urinating, + urinary frequency and + urinary urgency Musculoskeletal: as per Subjective / HPI and + neck pain Integumentary: no rash Neurologic: as per Subjective / HPI; no falls Psychiatric: no depression Endocrine: denies diabetes Hematologic / Lymphatic: no easy bleeding and no easy bruising Physical Exam Constitutional: no acute distress and no altered mental status Eyes: + conjunctival abnormality (slight injection - left eye ), PERRL and EOM intact bilaterally; no nystagmus left upper eyelid modestly droopy; right upper eyelid wnl ENMT: Ears: + external ear abnormality (both pinnae injected but no tenderness ); no EAC abnormality and no TM abnormality Mouth: no oral mucosal abnormality, oral mucous membranes not dry and TMJ nontender no dental abscess; no sinus tenderness Neck: trachea midline, no thyromegaly b/l carotid bruits Respiratory: + labored breathing (gets dyspneic with just moving in bed) Auscultation: + wheezes; no crackles Cardiovascular: Rate/Rhythm: regular rhythm and + tachycardic Heart Sounds: normal S1 and normal S2; no murmur Vessels: posterior tibial pulses present, dorsalis pedis pulses present and radial pulses present (radial pulse on right nearly absent; left 1-2+); no JVD Extremities: no edema Gastrointestinal (Abdomen): normal bowel sounds, soft, nontender, no hepatosplenomegaly Musculoskeletal: Extremities: + clubbing Skin: no rashes, warm and dry Neurologic: DTRs brisk x 4 extremities, slightly more so on right; +babinski on left, negative on right; strength RUE/RLE 4-5/5 strength; LUE/LLE 5/5; no obvious facial droop; tongue midline; EOMI; shoulder shrug symmetric; sensation intact V1/V2/V3 b/l; speech clear/fluent; finger/nose/finger maneuver w/o ataxia; mild apraxia of facial movements Psychiatric: Orientation: alert, oriented to person and oriented to place Lymphatic: no cervical lymphadenopathy Results & Data Results & Data ([facility]) Vital Signs (Past 12 Hours) Vital Signs Temp Pulse Pulse Resp BP BP Pulse Ox 01/16/21 17:10 100 H 12 126/73 96 01/16/21 17:00 103 H 26 H 01/16/21 15:33 37.1 C 112 H 112 H 20 130/68 130/68 96 01/16/21 15:32 108 H 23 130/68 96 Laboratory Results Laboratory Results - last 24 hr 01/16/21 01/16/21 01/16/21 15:45 15:45 15:45 WBC 9.43 RBC 4.11 L Hgb 11.4 L POC Hgb Hct 33.7 L POC Hct MCV 82.0 MCH 27.7 MCHC 33.8 RDW Std Deviation 46.8 H RDW Coeff of Maribeth 15.7 H Plt Count 377 MPV 10.3 Immature Gran % (Auto) 0.2 Neut % (Auto) 69.7 Lymph % (Auto) 23.1 Gonzales % (Auto) 4.5 Eos % (Auto) 2.2 Baso % (Auto) 0.3 Neut # (Auto) 6.57 H Lymph # (Auto) 2.18 Gonzales # (Auto) 0.42 Eos # (Auto) 0.21 Baso # (Auto) 0.03 Immature Gran # (Auto) 0.02 ESR PT 10.3 INR 1.0 APTT 23.4 PTT Ratio 0.9 POC Sodium Sodium 139 POC Potassium Potassium 3.8 POC Chloride Chloride 105 Carbon Dioxide 28 POC Total CO2 Anion Gap 6.0 POC Anion Gap POC BUN BUN 16 Creatinine 1.05 POC Creatinine Est Cr Clr Drug Dosing 52.0 Est GFR ( Amer) 64.5 Est GFR (Non-Af Amer) 55.7 BUN/Creatinine Ratio 15.0 Glucose 177 H POC Glucose (other) Calcium 9.2 POC Ioniz Calcium Yousuf Phosphorus 3.1 Magnesium 1.7 L Total Bilirubin 0.2 AST 12 L ALT 26 Alkaline Phosphatase 161 H Troponin I < 0.015 C-Reactive Protein < 0.29 Total Protein 6.9 Albumin 3.2 L Globulin 3.7 Albumin/Globulin Ratio 0.9 TSH 2.320 COVID-19 Eval Order SARS-CoV-2 (PCR) Influenza Type A (PCR) Influenza Type B (PCR) RSV (RT-PCR) 01/16/21 01/16/21 01/16/21 15:45 16:22 16:41 WBC RBC Hgb POC Hgb 11.9 L Hct POC Hct 35 L MCV MCH MCHC RDW Std Deviation RDW Coeff of Maribeth Plt Count MPV Immature Gran % (Auto) Neut % (Auto) Lymph % (Auto) Gonzales % (Auto) Eos % (Auto) Baso % (Auto) Neut # (Auto) Lymph # (Auto) Gonzales # (Auto) Eos # (Auto) Baso # (Auto) Immature Gran # (Auto) ESR 19 PT INR APTT PTT Ratio POC Sodium 139 Sodium POC Potassium 3.6 Potassium POC Chloride 102 Chloride Carbon Dioxide POC Total CO2 28 Anion Gap POC Anion Gap 14.0 L POC BUN 17 BUN Creatinine POC Creatinine 1.0 Est Cr Clr Drug Dosing Est GFR ( Amer) Est GFR (Non-Af Amer) BUN/Creatinine Ratio Glucose POC Glucose (other) 165 H Calcium POC Ioniz Calcium Yousuf 1.27 Phosphorus Magnesium Total Bilirubin AST ALT Alkaline Phosphatase Troponin I C-Reactive Protein Total Protein Albumin Globulin Albumin/Globulin Ratio TSH COVID-19 Eval Order [facility]FluRsv at [facility] SARS-CoV-2 (PCR) Influenza Type A (PCR) Influenza Type B (PCR) RSV (RT-PCR) 01/16/21 16:41 WBC RBC Hgb POC Hgb Hct POC Hct MCV MCH MCHC RDW Std Deviation RDW Coeff of Maribeth Plt Count MPV Immature Gran % (Auto) Neut % (Auto) Lymph % (Auto) Gonzales % (Auto) Eos % (Auto) Baso % (Auto) Neut # (Auto) Lymph # (Auto) Gonzales # (Auto) Eos # (Auto) Baso # (Auto) Immature Gran # (Auto) ESR PT INR APTT PTT Ratio POC Sodium Sodium POC Potassium Potassium POC Chloride Chloride Carbon Dioxide POC Total CO2 Anion Gap POC Anion Gap POC BUN BUN Creatinine POC Creatinine Est Cr Clr Drug Dosing Est GFR ( Amer) Est GFR (Non-Af Amer) BUN/Creatinine Ratio Glucose POC Glucose (other) Calcium POC Ioniz Calcium Yousuf Phosphorus Magnesium Total Bilirubin AST ALT Alkaline Phosphatase Troponin I C-Reactive Protein Total Protein Albumin Globulin Albumin/Globulin Ratio TSH COVID-19 Eval Order SARS-CoV-2 (PCR) NEGATIVE Influenza Type A (PCR) Negative Influenza Type B (PCR) Negative RSV (RT-PCR) Negative Diagnostic Findings Chest X-Ray 01/16/21 16:12 XR chest 1V portable CLINICAL HISTORY: Stroke Like Symptoms COMPARISON STUDY: No previous studies for comparison. FINDINGS: Lung volumes are normal. Lungs are clear. There is no pneumothorax or pleural effusion. Cardiac size is normal. Mediastinal contours are normal. There is no evidence for pulmonary edema. Incidental note is made of severe osteoarthritis of the bilateral glenohumeral joints. IMPRESSION: No acute cardiopulmonary findings. ACT 112: Negative or not required by law. Electronically signed by: Miguel Angel Sutton M.D. 01/16/2021 4:[address] 01/16/21 16:12 CT OF THE HEAD WITHOUT CONTRAST CLINICAL HISTORY: Stroke Like Symptoms COMPARISON STUDY: No previous studies for comparison. CT DOSE: 1388.94 mGy.cm TECHNIQUE: Helical axial images of the head were obtained without IV contrast. Automated exposure control was utilized for the study. A dose lowering technique was utilized adhering to the principles of ALARA. FINDINGS: No acute intracranial hemorrhage, midline shift or mass effect is present. Note is made of an old large left MCA territory infarct with encephalomalacia. There is associated mild dilatation of the left lateral ventricle. Basal cisterns are patent. There are no extra axial collections. There are no findings to suggest acute dural sinus stenosis or acute territorial infarct. There are no significant calvarial abnormalities. IMPRESSION: 1. Old large left MCA territory infarct. 2. No acute intracranial findings. ACT 112: Negative or not required by law. Electronically signed by: Miguel Angel Sutton M.D. 01/16/2021 4:46 PM Head CTA 01/16/21 16:12 CTA ANGIOGRAPHY OF THE HEAD CLINICAL HISTORY: Stroke Like Symptoms COMPARISON STUDY: No previous studies for comparison. TECHNIQUE: Helical axial images of the head were obtained following uneventful intravenous administration of 119 cc of Optiray 320. Sagittal and coronal reconstructions were viewed as well as maximal intensity projections on an independent 3-D workstation. Automated exposure control was utilized for the study. A dose lowering technique was utilized adhering to the principles of ALARA. FINDINGS: No acute intracranial hemorrhage, midline shift or mass effect is present. Encephalomalacia within the left MCA territory represents old infarct. There is associated mild dilatation of the left lateral ventricle. The distal cervical and intracranial portion of the right internal carotid artery is diminutive with multifocal stenoses. The right M1, M2, A1 and A2 segments are patent. There is moderate plaque within the left cavernous carotid with mild stenosis. The left M1, M2, A1 and A2 segments are patent. There is severe stenosis of the distal left vertebral artery. The basilar artery is diminutive. The bilateral posterior cerebral arteries are patent. No central vessel occlusion is identified on this exam. There is no intracranial aneurysm. IMPRESSION: 1. Asymmetric decreased caliber of the distal cervical and intracranial portion of the right internal carotid artery with multifocal stenoses. 2. Severe stenosis of the distal left vertebral artery. 3. No central vessel occlusion. 4. Extensive atherosclerotic plaque within the intracranial vessels. 5. Old left MCA territory infarct. ACT 112: Negative or not required by law. Electronically signed by: Miguel Angel Sutton M.D. 01/16/2021 5:03 PM Neck CTA 01/16/21 16:12 CT ANGIOGRAPHY OF THE NECK WITH CONTRAST CLINICAL HISTORY: Stroke Like Symptoms COMPARISON STUDY: No previous studies for comparison. Technique: CT angiography of the carotid and vertebral arteries was obtained using Optiray 320 IV and 3D reconstruction on an independent workstation. NASCET criteria was utilized. Automated exposure control was utilized for the study. A dose lowering technique was utilized adhering to the principles of ALARA. Findings: Mild emphysema is noted within the lung apices. There is no cervical lymphadenopathy. There is no acute cervical spine fracture. There is extensive atherosclerotic plaque of the proximal to mid aortic arch, partially imaged on this exam. There is extensive plaque at the origins of the brachiocephalic trunk, left common carotid and left subclavian arteries with at least moderate stenosis of these vessels. There is severe stenosis at the origin of the right subclavian artery as well as the origin of the right vertebral artery. There is diffuse narrowing with multifocal stenoses within the right common carotid, cervical internal carotid and external carotid arteries. The cervical portion of the left internal carotid artery contains moderate plaque without significant stenosis. There is no dissection within the major vessels of the neck. IMPRESSION: 1. Extensive atherosclerotic plaque within the major vessels of the neck, as described above, including the origins of the brachiocephalic, left common carotid and bilateral subclavian arteries with at least moderate stenoses of these vessels, suboptimally assessed on this exam due to artifact. 2. Diffuse narrowing with multifocal stenoses within the right common carotid, cervical internal carotid and external carotid arteries. 3. Moderate plaque within the cervical left internal carotid artery without significant stenosis. ACT 112: Negative or not required by law. Electronically signed by: Miguel Angel Sutton M.D. 01/16/2021 4:59 PM Carotid Doppler Study 01/16/21 18:15 CAROTID ARTERY ULTRASOUND CLINICAL HISTORY: TIAs, known ICA stenosis, drop attacks COMPARISON STUDY: CTA of the neck performed earlier today. TECHNIQUE: Real-time, grayscale, and color Doppler sonography of the carotid and vertebral arteries was performed. Images were viewed in the transverse and longitudinal planes. FINDINGS: Extensive atherosclerotic plaque is noted within the right common carotid and right cervical internal carotid arteries. Dampened flow within these vessels is noted. No elevated velocities are identified however CTA demonstrates multifocal stenoses within these vessels. Evaluation by sonography is difficult. Elevated velocities within the left common carotid artery are noted ranging up to 362 cm/s. Peak systolic velocity within the left internal carotid arteries 200 cm/s. The systolic ratio between the left internal to common carotid artery is normal. Blood pressure could not be obtained due to limb restrictions. IMPRESSION: Technically difficult exam given extensive atherosclerotic plaque within the bilateral common carotid and cervical internal carotid arteries, greater on the right. Multifocal stenoses within these vessels better depicted on CTA performed earlier today. ACT 112: Negative or not required by law. Electronically signed by: Miguel Angel Sutton M.D. 01/16/2021 7:27 PM EKG - sinus tach, RBBB, no ST segment changes Code Status & VTE Plan Code Status full VTE Prophylaxis Plan VTE Prophylaxis will be ordered: Yes PG Care Time/CCT Total # of Minutes Spent Total Time Spent with Patient: Total time spent is greater than 50% in co ordination of care (as documented) at patient's floor/unit and/or counseling patient: Coding Level of Care Code 19844 Initial Inpt Care Lvl 3 Diagnoses TIA (transient ischemic attack) G45.9 Jaw pain, non-TMJ R68.84 History of stroke Z86.73 History of carotid stenosis Z86.79 Essential (primary) hypertension I10 Hyperlipidemia E78.5 Tobacco dependence F17.200 Subclavian arterial stenosis I77.1 Vertebral artery stenosis I65.09 GERD (gastroesophageal reflux disease) K21.9 Neuropathy G62.9 Hypomagnesemia E83.42 DVT prophylaxis Z29.9
[2021-01-16] MEDS: NSS + 20MEQ KCL 20 MEQ/1,000 ML BAG IV SCH (21:00)
[2021-01-16] MEDS ORDERED: MAGNESIUM SULFATE / D5W 1 GM/100 ML BAG IV ONE (21:00)
[2021-01-16] MEDS: ENOXAPARIN INJ 40 MG/0.4 ML SYR SQ SCH (21:01)
[2021-01-16] MEDS: DOCUSATE SODIUM 100 MG CAP PO SCH (21:01)
[2021-01-16] MEDS: AMITRIPTYLINE HCL 50 MG TAB PO SCH (21:01)
[2021-01-17 00:22] LABS: Appearance Urine Cloudy (Clear); Bacteria Urine Automated 4+ (Negative); Bilirubin Urine Negative (Negative); Blood Urine Trace (Negative); Color Urine Yellow; Glucose Urine UA Negative (Negative); Ketones Urine Negative (Negative); Leukocyte Esterase Urine 2+ (Negative); Nitrite Urine Positive (Negative); Protein Urine Negative (Negative); RBC Urine Automated 0-4 /hpf (0-4); Specific Gravity Urine 1.038 (1.000-1.030); Urobilinogen Urine Negative (Negative); WBC Urine Automated >30 /hpf (0-5); pH Urine 6.5 (4.5-7.5)
--- NOTE | 2021-01-17 00:54 | Communication Note ---
Date of Service: January 17, 2021 Patient had a UA come back with bacteria along with foul smelling urine. The patient was asymptomatic but was noted to be altered. - placed on Ceftriaxone 1gm daily, await speciation and sensitivities
[2021-01-17] MEDS: cefTRIAXone SODIUM 1,000 MG in DEXTROSE 5% 50 ML IV SCH (01:23)
[2021-01-17 06:06] LABS: Basophils # (auto) 0.03 K/uL (0-0.2); Basophils % (auto) 0.3 %; Eosinophils # (auto) 0.31 K/uL (0-0.5); Eosinophils % (auto) 3.4 %; Hematocrit (blood only) 34.6 % (37-47); Hemoglobin 11.4 g/dL (12.0-16.0); Immature Granulocytes # (auto) 0.02 K/uL (0.00-0.02); Immature Granulocytes % (auto) 0.2 %; Mean Corpuscular Hgb Conc 32.9 g/dL (32-36); Mean Platelet Volume 9.7 fL (7.4-10.4); Monocytes # (auto) 0.67 K/uL (0.11-0.59); Monocytes % (auto) 7.3 %; Neutrophils # (auto) 4.84 K/uL (1.4-6.5); Neutrophils % (auto) 52.8 %; Platelet Count 343 K/uL (130-400); RDW Coefficient of Variation 15.5 % (11.5-14.5); RDW Standard Deviation 45.7 fL (36.4-46.3); Red Blood Count 4.22 M/uL (4.2-5.4); White Blood Count 9.17 K/uL (4.8-10.8)
[2021-01-17 06:23] LABS: BUN Creatinine Ratio 22.9 (10-20); Calcium 8.5 mg/dl (8.5-10.1); Creatinine Clr Calc Pharmacy 98.3 ml/min; Est GFR (African American) 114.1; Est GFR (Non-African American) 98.4; Potassium 3.8 mmol/L (3.5-5.1)
[2021-01-17 06:40] LABS: Estimated Average Glucose 134 mg/dl; Hemoglobin A1C 6.3 % (4.5-5.6)
--- NOTE | 2021-01-17 07:02 | Electrocardiogram Report ---
Test Reason : Blood Pressure : / mmHG Vent. Rate : 109 BPM Atrial Rate : 109 BPM P-R Int : 132 ms QRS Dur : 138 ms QT Int : 372 ms P-R-T Axes : 078 -20 059 degrees QTc Int : 500 ms Sinus tachycardia Right bundle branch block Abnormal ECG No previous ECGs available Confirmed by Herman Dennison ([id number]) on 01/17/2021 7:01:48 AM Referred By: REFERRED SELF Confirmed By:Herman Dennison
--- NOTE | 2021-01-17 07:35 | Magnetic Resonance Report ---
MR brain wo con HISTORY: 65 years-old Female RIGHT ear numbness and jaw numbness acute strokelike symptoms COMPARISON: CT head, CTA head and neck 01/16/2011 TECHNIQUE: Multiplanar multisequence MRI of the brain was obtained without the use of IV contrast. FINDINGS: No restricted diffusion to suggest acute or subacute infarct. Punctate focus of increased signal of t he right choroid plexus on the diffusion-weighted images #12, likely artifactual. Large chronic left MCA territory infarct with encephalomalacia and gliosis. Mild asymmetric ex vacuo ventriculomegaly th e left lateral ventricle. No acute intracranial hemorrhage, midline shift, abnormal extra-axial colle ction, hydrocephalus or intracranial mass. Mild patchy white matter T2/FLAIR hyperintensities through out the bilateral cerebral hemispheres. Cerebral venous sinuses and major arterial flow voids are pat ent. Mastoid air cells are clear. Paranasal sinuses are also generally clear. The orbits, skull and s oft tissues are unremarkable. IMPRESSION: 1. No acute intracranial abnormality, specifically there is no acute or subacute infarct. 2. Large chronic left MCA territorial infarct. 3. Mild chronic microvascular ischemic disease. ACT 112: Negative or not required by law. The above report was generated using voice recognition software. It may contain grammatical, syntax o r spelling errors. Electronically signed by: Hero Leonard M.D. 01/17/2021 7:34 AM
[2021-01-17] MEDS ORDERED: BENAZEPRIL HCL 10 MG TAB PO SCH (09:00)
[2021-01-17] MEDS ORDERED: ASPIRIN 325 MG ECTAB PO SCH (09:00)
[2021-01-17] MEDS ORDERED: AMLODIPINE BENAZEPRIL PO SCH (09:00)
--- NOTE | 2021-01-17 09:10 | XCELERA ---
[id number]
--- NOTE | 2021-01-17 09:36 | Consultation ---
Date of Consultation January 17, 2021 Assessment & Plan (1) Subclavian arterial stenosis: Pt with multiple areas of significant arterial stenosis in neck/chest. No indications for vascular surgical intervention at this time, however, does need outpt follow up. Pt states she does not see a vascular physician in [place], so we will assist her with outpt appt with vascular surgery dept at [facility]. Please call if needed. History of Present Illness Reason for Consultation: carotid stenosis Attending Physician: Tc Garcai DO History of Present Illness 65 yo f with multiple medical problems, including CVA, GERD, HTN, hyperlipidemia, and carotid stenosis, s/p BL CEA in 2017 in [place], seen in consultation today for possible TIA and carotid stenosis. Pt states she has chronic RUE and RLE weakness from prior CVA. Pt is Left handed and denies R arm claudication sx or lightheadedness with R arm activity. She states she developed some pain/numbness to R jaw area, but this has resolved. She states he daughter told her that she had trouble picking up a coffee mug with her left hand last week. She admits fatigue/malaise, and states her daughter told her she was "out of it" yesterday, so brought her to ED. Denies MURPHY, fever, chest pain, SOB, abd pain, N/V, rest pain, claudication, nonhealing wounds or ul cerations, amaurosis, facial droop, difficulty speaking. CTA demonstrates severe diffuse disease in multiple locations, including her innominate, R subclavian art, L vertebral art, common carotid art. Carotid US did not eval her vertebrals for reversal of flow. Allergies Allergy/AdvReac Type Severity Reaction Status Date / Time No Known Allergies Allergy Unverified 01/16/21 15:53 Home Medications Medication Instructions Recorded Confirmed Type amitriptyline 50 mg PO HS 01/16/21 01/16/21 History amlodipine-benazepril 1 cap PO DAILY 01/16/21 01/16/21 History aspirin 325 mg PO DAILY 01/16/21 01/16/21 History atorvastatin 80 mg PO DAILY 01/16/21 01/16/21 History docusate sodium 100 mg PO BID 01/16/21 01/16/21 History fexofenadine 180 mg PO DAILY 01/16/21 01/16/21 History fluticasone propionate 2 spray INTRANASAL DAILY 01/16/21 01/16/21 History furosemide 40 mg PO DAILY PRN 01/16/21 01/16/21 History gabapentin 600 mg PO DAILY 01/16/21 01/16/21 History meloxicam 15 mg PO DAILY 01/16/21 01/16/21 History multivitamin 1 tab PO DAILY 01/16/21 01/16/21 History omeprazole 20 mg PO DAILY 01/16/21 01/16/21 History polyethylene glycol 3350 17 g PO DAILY 01/16/21 01/16/21 History Patient History Medical History Essential (primary) hypertension History of carotid stenosis History of stroke 09/2016 - MCA territory on left; resulting right-sided hemiparesis Hyperlipidemia Tobacco dependence Surgical History History of appendectomy S/P carotid endarterectomy bilateral - 2016 - [facility] Family History Mother No problems noted. Father , 70s Parkinsons disease Social History Smoking Status: Current every day smoker Years Smoked: 30; Cigarettes Per Day: 1/2 pack; Hx Alcohol Use: No Hx Substance Use: No Preferred Language: Kiswahili Communication Ability: Effective Beliefs That Will Affect Care: None marital status: marital status details: 2x's Current Living Situation: Spouse and Family Current Living Situation Comment: lives with 2nd & daughter in [facility]; originally from [place] [place] current occupational status: retired current occupation: farm work How many Children do You have: 3 How many Children do You have Comment: 2 sons; 1 daughter Other Information That Helps Us Care for You: No Feels Safe at Home: Yes Safety Concerns: Feels Safe At This Time Assistive Devices: Walker Review of Systems Review of Systems: All systems reviewed & are unremarkable except as noted in HPI & below Physical Exam Constitutional: WD/WN, vitals as above Eyes: PERRL, conjunctivae normal, anicteric sclerae ENMT: Ears: no hearing impairment Neck: trachea midline (old surgical scars noted) Respiratory: normal respiratory effort, lungs clear to auscultation Auscultation: + diminished lung sounds Cardiovascular: RRR, no murmur, no edema Vessels: posterior tibial pulses present, dorsalis pedis pulses present, brachial pulses present (+1 RUE, +3 LUE) and radial pulses present (+1 RUE, +3 LUE); + abnormal peripheral pulses Extremities: normal capillary refill; no edema Gastrointestinal (Abdomen): normal bowel sounds, soft, nontender, no hepatosplenomegaly Musculoskeletal: Extremities: extremities normal to inspection and + abnormal strength (RUE/RLE 4/5, otherwise 5/5); full ROM of extremities Skin: no rashes, warm and dry Neurologic: moves all extremities; no focal motor deficits, + not awake and not confused Speech / Cognition: normal speech Psychiatric: A+Ox3, euthymic affect Results & Data ([facility]) Vital Signs (Past 12 Hours) Vital Signs Temp Pulse Resp BP Pulse Ox Pulse Ox 01/17/21 08:00 94 01/17/21 07:33 36.5 C 72 16 186/92 H 94 01/17/21 03:39 36.7 C 97 H 18 166/79 H 94 01/16/21 22:31 36.9 C 87 18 138/75 93
[2021-01-17] MEDS: NSS + 20MEQ KCL 20 MEQ/1,000 ML BAG IV SCH ×2 (10:00→21:06)
[2021-01-17] MEDS: NICOTINE 14 MG/24 HR PATCH TD SCH (10:18)
[2021-01-17] MEDS: GABAPENTIN 600 MG TAB PO SCH (10:20)
[2021-01-17] MEDS: MULTIVITAMIN TAB PO SCH (10:20)
[2021-01-17] MEDS: FEXOFENADINE HCL 180 MG TAB PO SCH (10:21)
[2021-01-17] MEDS: DOCUSATE SODIUM 100 MG CAP PO SCH ×2 (10:22→21:06)
[2021-01-17] MEDS: ATORVASTATIN 40 MG TAB PO SCH (10:22)
[2021-01-17] MEDS: AMITRIPTYLINE HCL 50 MG TAB PO SCH (10:23)
[2021-01-17] MEDS: amLODIPine BESYLATE 5 MG TAB PO SCH (10:24)
[2021-01-17] MEDS: PANTOprazole 40 MG TAB PO SCH (10:24)
[2021-01-17] MEDS: FLUTICASONE PROPIONATE NA SPR 16 GM BTL SCH (10:25)
[2021-01-17] MEDS: POLYETHYLENE (MIRALAX) 17 GM PACK PO SCH (10:25)
[2021-01-17] MEDS: ENALAPRIL MALEATE 10 MG TAB PO SCH (11:40)
--- NOTE | 2021-01-17 14:31 | Neurology Consultation ---
Date of Consultation January 17, 2021 Assessment & Plan (1) Stroke-like symptoms: Jennifer Faye is a 65 yo woman w/ PMH of HTN, HLD, tobacco abuse, h/o stroke with residual right facial/RUE/RLE weakness, known carotid artery stenosis s/p CEA, neuropathy and GERD who p/t [facility] with subacute onset of unresponsiveness x15 minutes, left FP and left facial numbness. INVENTORY MANAGEMENT SPECIALIST ~ one week ago (seen in [place] urgent [facility] at that time). # Stroke-like symptoms: most c/w stroke recrudescence in the setting of UTI. Cannot completely r/o seizure given h/o stroke with significant encephalomalacia on imaging in setting of infection - would complete work-up with routine EEG to r/o seizure tendency (can be done as an outpatient if patient prefers as she is not local, just visiting) - given h/o stroke, would stop meloxicam and avoid NSAIDs if possible # Vertebral artery and carotid artery stenosis: - would do maximal medical therapy per CREST2 trial: ASA 81mg daily/plavix 75mg daily/atorvastatin 80mg daily - recommend outpatient DSA to further characterize cerebral vasculature and consider official enrollment in the CREST2 trial to see if she would be an appropriate candidate for surgical treatment in the non-emergent outpatient setting (closest enrollment site here is [facility]) - strongly encourage tobacco cessation - work with PCP on stroke prevention goals (A1c<7, LDL <70, BP<130/80) Thank you for this interesting consult. Plan of care discussed with primary team. Please call or text with questions. (2) S/P carotid endarterectomy: (3) History of stroke: (4) UTI (urinary tract infection): (5) Tobacco dependence: History of Present Illness Attending Physician: Tc Garcia, History of Present Illness Jennifer Faye is a 65 yo woman w/ PMH of HTN, HLD, tobacco abuse, h/o stroke with residual right facial/RUE/RLE weakness, known carotid artery stenosis s/p CEA, neuropathy and GERD who p/t [facility] with subacute onset of unresponsiveness x15 minutes, left FP and left facial numbness. INVENTORY MANAGEMENT SPECIALIST ~ one week ago (seen in [place] [facility] at that time). In the ED, she was afebrile, BP 130/68, HR 108, RR 23, satting 96% on room air. Labs notable for WBC 9.43, hemoglobin 11.4 with MCV 82, platelets 377, sodium 139, potassium 3.8, creatinine 1.05, glucose 177, INR 1, AST/ALT within normal, alkaline phosphatase elevated to 161, troponin negative, CRP less than 0.29, TSH within normal, ESR 19, Covid negative. A1c 6.3, LDL 121, UA + for infection. Imaging independently reviewed. CT head shows no hemorrhage, large area of encephalomalacia in the left superior division of the MCA territory with no acute infarct noted. CTA head and neck notable for diffuse intracranial atherosclerosis, no LVO, high-grade stenosis of the left V4 segment intracranially, small caliber basilar artery, severe R ICA stenosis proximal to the bifurcation, and ?left vertebral artery stenosis at the origin. MRI brain shows left MCA territory encephalomalacia, mild SVID, no acute infarct, Chiari malformation or tumor noted. On examination, she reports that she recalls driving in the car with her daughter when she had cute onset of word finding difficulty. She denies LoC, automatisms, N/T/W at time of event; reports recalling entire conversation just not being able to answer her daughters questions or participate in the conversation. Reports that this has happened one other time in the past with no cause identified. Reports having residual right sided weakness (RLE>RUE), difficulties with facial apraxia at baseline, difficulties with speech intermittently (expressive aphasia) but is able to write usually (but not spell well anymore), and numbness in the RLE>RUE. She reports that she has had about a one week h/o pain/numbness in the right side of her face near her right ear. Denies difficulty closing her eyes, facial droop or left sided symptoms at all that she recalls. Notes that she was started on a new blood pressure medication last week by PCP but stopped it due to symptomatic hypotension. Was smoking prior to admission but reports that the nicotine patch has relieved her cravings. Allergies Allergy/AdvReac Type Severity Reaction Status Date / Time No Known Allergies Allergy Unverified 01/16/21 15:53 Home Medications Medication Instructions Recorded Confirmed Type amitriptyline 50 mg PO HS 01/16/21 01/16/21 History amlodipine-benazepril 1 cap PO DAILY 01/16/21 01/16/21 History aspirin 325 mg PO DAILY 01/16/21 01/16/21 History atorvastatin 80 mg PO DAILY 01/16/21 01/16/21 History docusate sodium 100 mg PO BID 01/16/21 01/16/21 History fexofenadine 180 mg PO DAILY 01/16/21 01/16/21 History fluticasone propionate 2 spray INTRANASAL DAILY 01/16/21 01/16/21 History furosemide 40 mg PO DAILY PRN 01/16/21 01/16/21 History gabapentin 600 mg PO DAILY 01/16/21 01/16/21 History meloxicam 15 mg PO DAILY 01/16/21 01/16/21 History multivitamin 1 tab PO DAILY 01/16/21 01/16/21 History omeprazole 20 mg PO DAILY 01/16/21 01/16/21 History polyethylene glycol 3350 17 g PO DAILY 01/16/21 01/16/21 History Patient History Medical History Essential (primary) hypertension History of carotid stenosis History of stroke 09/2016 - MCA territory on left; resulting right-sided hemiparesis Hyperlipidemia Tobacco dependence Surgical History History of appendectomy S/P carotid endarterectomy bilateral - 2016 - [facility] Family History Mother No problems noted. Father , 70s Parkinsons disease Social History Smoking Status: Current every day smoker Years Smoked: 30; Cigarettes Per Day: 1/2 pack; Hx Alcohol Use: No Hx Substance Use: No Preferred Language: Upper Sorbian Communication Ability: Effective Beliefs That Will Affect Care: None marital status: marital status details: 2x's Current Living Situation: Spouse and Family Current Living Situation Comment: lives with 2nd & daughter in [facility]; originally from [place] current occupational status: retired current occupation: farm work How many Children do You have: 3 How many Children do You have Comment: 2 sons; 1 daughter Other Information That Helps Us Care for You: No Feels Safe at Home: Yes Safety Concerns: Feels Safe At This Time Assistive Devices: Walker Review of Systems Review of Systems: 14 point review of systems completed and negative except as in HPI. Exam (Neuro) Physical Exam: General Exam: GEN: NAD, sitting in chair HEENT: No conjunctival injection, no rhinorrhea. CV: RRR on monitor, no significant edema. PULM: Nonlabored respirations on room air. Neuro Exam: MS: Awake and Alert. Oriented to person, place, not date (reported that it was May or June and 1820). Speech fluent, occasionally inappropriate with paraphasic errors present, no dysarthria noted. Language intact including naming high frequency words, comprehension, repetition; does have apraxia to certain commands particularly involving her face. Cognition and memory grossly intact. Attention intact. No neglect. CN: Visual edmondson full, + blink to threat bilaterally. No extinction to double simultaneous stimuli. Unable to visualize fundi on fundoscopic exam. PERRLA OU. EOMI without nystagmus. Facial sensation intact to LT. Unable to smile on command though face is symmetric. Hearing intact to conversation. Shoulder shrug normal. Tongue midline. Also has eyelid apraxia. MOTOR: Normal bulk and tone. + slight pronator drift in RUE. BUE strength 5/5 at deltoids, biceps, triceps, wrist flexors and extensors bilaterally. BLE strength 5/5 at iliopsoas, hamstrings, quadriceps, tibialis anterior, and gastrocnemius bilaterally. REFLEXES: 1+ at biceps, triceps, brachioradialis, trace patella, and absent Achilles bilaterally. Flexor plantar responses bilaterally. SENSORY: Intact to LT throughout, no extinction to double simultaneous stimuli. Vibration diminished in RLE, intact elsewhere. COORDINATION: No dysmetria or ataxia on [id number] bilaterally. Normal Asiya bilaterally. GAIT: Deferred due to physical status. NIH STROKE SCALE 1A. Level of Consciousness (0-3) = 0 1B. LOC Questions (0-2) = 0 1C. LOC Commands (0-2) = 0 2. Best Horizontal Gaze (0-2) = 0 3. Visual Edmondson (0-3) = 0 4. Facial Palsy (0-3) = 0 5. Motor Arm Right (0-4) = 0 Left (0-4) = 0 6. Motor Leg Right (0-4) = 0 Left (0-4) = 0 7. Limb Ataxia (0-2) = 0 8. Sensory (0-2) = 0 9. Best Language (0-3) = 0 10. Dysarthria (0-2) = 0 11. Extinction and Inattention (0-2) = 0 NIHSS TOTAL = 0 Results & Data ([facility]) Vital Signs (Past 12 Hours) Vital Signs Temp Pulse Pulse Resp BP Pulse Ox Pulse Ox 01/17/21 11:20 36.7 C 95 H 16 178/82 H 95 01/17/21 08:00 89 94 01/17/21 07:33 36.5 C 72 16 186/92 H 94 01/17/21 03:39 36.7 C 97 H 18 166/79 H 94 PG Care Time/CCT Total # of Minutes Spent Total Time Spent with Patient: Total time spent is greater than 50% in coordination of care (as documented) at patient's floor/unit and/or counseling patient: Coding Level of Care Code 15529 Initial Inpt Care Lvl 3 Diagnoses Stroke-like symptoms R29.90 S/P carotid endarterectomy Z98.890 History of stroke Z86.73 UTI (urinary tract infection) N39.0 Tobacco dependence F17.200
[2021-01-17] MEDS ORDERED: ALUMINUM/MAGNESIUM SUSP 30 ML UDC PO PRN (15:06)
--- NOTE | 2021-01-17 18:48 | Hospitalist Progress Note ---
Date of Service January 17, 2021 Assessment & Plan (1) Stroke-like symptoms: Vascular studies show stenosis but unable to calculate secondary to motion artifact Most of the symptoms patient presented with are resolved Patient with large MCA stroke in September 2016 with bilateral endarterectomies in 2017 Long discussion with daughter on the telephone today. Suggested that she get follow-up with vascular surgery in [place] as she does not want to go to [facility] We will provide a CD of all of her images while at [facility] We will also work with case management to help facilitate outpatient appointment with [place] vascular surgery Continue aspirin, clopidogrel, and atorvastatin Did well with physical therapy Anticipate discharge home tomorrow (2) Vertebral artery stenosis: Follow-up with vascular surgery at [place] as an outpatient (3) Subclavian arterial stenosis: Follow-up with vascular surgery at [place] as an outpatient (4) TIA (transient ischemic attack): Right-sided weakness which is similar to residual effects from large MCA territorial stroke from 2016 Continue physical therapy as an outpatient as approved by Medicaid Continue to recommend smoking cessation Follow-up with neurology as an outpatient (5) Tobacco dependence: Nicotine patch currently in place Recommend full abstention from tobacco products (6) Essential (primary) hypertension: Will allow for some permissive hypertension while inpatient due to resolut ion of symptoms Continue usual home medications (7) Hypomagnesemia: Repleted with magnesium sulfate Check repeat magnesium with a.m. labs (8) DVT prophylaxis: Continue with aspirin and clopidogrel Lovenox 40 mg SQ daily Out of bed as tolerated Ambulate as tolerated Disposition: Anticipate discharge home tomorrow Admission and Anticipated Discharge Date Admission Date: January 16, 2021 Subjective Attending: Dr. Garcia Patient seen and examined at bedside. She is in the bedside chair. She is looking out the window. She does answer some commands but seems somewhat disoriented. I had a long discussion with the daughter this evening and developed plan of action for discharge and return home to [place]. Patient denies any headache. She has no diplopia or changes in vision. She denies any difficulty with swallowing. She does have some residual effect from her large MCA territory stroke which occurred in [place] in September. According the daughter the patient did have a bilateral CEA in 2017. She is unclear as to whether this was done with graft or if plaque was just cleaned out. Daughter is requesting referral to [facility] as an outpatient for vascular evaluation and appropriateness for further intervention. Patient has no other acute complaints at this time. Review of Systems Review of Systems: All systems reviewed & are unremarkable except as noted in Subjective Physical Exam Physical Exam: GENERAL : No acute distress EYES: No icterus, gaze conjugate. Pupils equal round reactive to light. NOSE: No evidence of epistaxis MOUTH: No lesions or candidiasis. No appreciation of facial droop. Tongue is midline. Mucosa is moist. NECK: Supple LUNGS: CTA B/L, no wheezes, rales or rhonchi HEART: Regular, rate controlled ABDOMEN: Soft, NT, ND, BS Present EXTREMITIES: No LE edema, pedal pulses intact NEURO: A&OX3. Some weakness on the right arm. Results & Data Results & Data ([facility]) Vital Signs (Past 12 Hours) Vital Signs Temp Pulse Pulse Resp BP Pulse Ox Pulse Ox 01/17/21 15:02 36.9 C 94 H 19 156/82 H 98 01/17/21 11:20 36.7 C 95 H 16 178/82 H 95 01/17/21 08:00 89 94 01/17/21 07:33 36.5 C 72 16 186/92 H 94 Laboratory Results 01/17/21 05:45 01/17/21 05:45 Diagnostic Findings MR brain wo con HISTORY: 65 years-old Female RIGHT ear numbness and jaw numbness acute strokelike symptoms COMPARISON: CT head, CTA head and neck 01/16/2011 TECHNIQUE: Multiplanar multisequence MRI of the brain was obtained without the use of IV contrast. FINDINGS: No restricted diffusion to suggest acute or subacute infarct. Punctate focus of increased signal of the right choroid plexus on the diffusion-weighted images #12, likely artifactual. Large chronic left MCA territory infarct with encephalomalacia and gliosis. Mild asymmetric ex vacuo ventriculomegaly the left lateral ventricle. No acute intracranial hemorrhage, midline shift, abnormal ex tra-axial collection, hydrocephalus or intracranial mass. Mild patchy white matter T2/FLAIR hyperintensities throughout the bilateral cerebral hemispheres. Cerebral venous sinuses and major arterial flow voids are patent. Mastoid air cells are clear. Paranasal sinuses are also generally clear. The orbits, skull and soft tissues are unremarkable. IMPRESSION: 1. No acute intracranial abnormality, specifically there is no acute or subacute infarct. 2. Large chronic left MCA territorial infarct. 3. Mild chronic microvascular ischemic disease. ACT 112: Negative or not required by law. The above report was generated using voice recognition software. It may contain grammatical, syntax or spelling errors. Electronically signed by: Hero Leonard M.D. 01/17/2021 7:34 AM PG Care Time/CCT Total # of Minutes Spent Total Time Spent with Patient: Total time spent is greater than 50% in coord ination of care (as documented) at patient's floor/unit and/or counseling patient: 45 minutes including long telephone discussion with daughter Coding Level of Care Code 44976 Subseq Hosp Care Lvl 2 (25 - SIGNIFICANT, SEPARATELY IDENTIFIABLE ) Diagnoses Stroke-like symptoms R29.90 Vertebral artery stenosis I65.09 Subclavian arterial stenosis I77.1 TIA (transient ischemic attack) G45.9 Tobacco dependence F17.200 Essential (primary) hypertension I10 Hypomagnesemia E83.42 DVT prophylaxis Z29.9 Time Spent (min) 45
[2021-01-17] MEDS: ENOXAPARIN INJ 40 MG/0.4 ML SYR SQ SCH (21:06)
[2021-01-18] MEDS: cefTRIAXone SODIUM 1,000 MG in DEXTROSE 5% 50 ML IV SCH (01:13)
--- NOTE | 2021-01-18 05:43 | Communication Note ---
Date of Service: January 18, 2021 Patient has diffuse cerebrovascular disease. Her left carotid endart site is widely patent however there appears to be a possible stenosis at the origin of the left common carotid. There also appears to be a significant narrowing of the innominate at the origin of the right carotid. The right carotid itself has diffuse disease in the common with what appears to be an ulceration. The left endart site is significantly narrowed with layered thrombus or intimal hyperplasia. This patient has multiple areas of both carotids and arch vessels that can be a source of embolization. Medical management is the best modality at this time. May consider repeat CTA to re-evaluate these lesions in hopes of having less motion on the study.
[2021-01-18 06:58] LABS: Basophils # (auto) 0.03 K/uL (0-0.2); Basophils % (auto) 0.4 %; Eosinophils # (auto) 0.32 K/uL (0-0.5); Eosinophils % (auto) 3.8 %; Hematocrit (blood only) 33.7 % (37-47); Hemoglobin 11.1 g/dL (12.0-16.0); Immature Granulocytes # (auto) 0.01 K/uL (0.00-0.02); Immature Granulocytes % (auto) 0.1 %; Lymphocytes # (auto) 3.03 K/uL (1.2-3.4); Mean Corpuscular Hgb Conc 32.9 g/dL (32-36); Monocytes # (auto) 0.72 K/uL (0.11-0.59); Monocytes % (auto) 8.6 %; Neutrophils % (auto) 51.1 %; Platelet Count 347 K/uL (130-400); RDW Coefficient of Variation 15.5 % (11.5-14.5); RDW Standard Deviation 46.1 fL (36.4-46.3); Red Blood Count 4.11 M/uL (4.2-5.4); White Blood Count 8.41 K/uL (4.8-10.8)
[2021-01-18 07:31] LABS: BUN Creatinine Ratio 35.5 (10-20); Calcium 8.5 mg/dl (8.5-10.1); Creatinine Clr Calc Pharmacy 111.1 ml/min; Est GFR (African American) 118.5; Est GFR (Non-African American) 102.2; Potassium 4.1 mmol/L (3.5-5.1)
[2021-01-18] MEDS ORDERED: CLOPIDOGREL BISULFATE 75 MG TAB PO SCH (09:00)
[2021-01-18] MEDS ORDERED: ASPIRIN 81 MG ECTAB PO SCH (09:00)
[2021-01-18] MEDS: GABAPENTIN 600 MG TAB PO SCH (09:30)
[2021-01-18] MEDS: ATORVASTATIN 40 MG TAB PO SCH (09:30)
[2021-01-18] MEDS: PANTOprazole 40 MG TAB PO SCH (09:30)
[2021-01-18] MEDS: ENALAPRIL MALEATE 10 MG TAB PO SCH (09:31)
[2021-01-18] MEDS: FLUTICASONE PROPIONATE NA SPR 16 GM BTL SCH (09:31)
[2021-01-18] MEDS: amLODIPine BESYLATE 5 MG TAB PO SCH (09:31)
[2021-01-18] MEDS: DOCUSATE SODIUM 100 MG CAP PO SCH (09:32)
[2021-01-18] MEDS: NICOTINE 14 MG/24 HR PATCH TD SCH (09:32)
[2021-01-18] MEDS: FEXOFENADINE HCL 180 MG TAB PO SCH (09:33)
[2021-01-18] MEDS: POLYETHYLENE (MIRALAX) 17 GM PACK PO SCH (09:34)
[2021-01-18] MEDS: MULTIVITAMIN TAB PO SCH (09:35)
[2021-01-18] MEDS ORDERED: STROKE PATIENT DISCHARGE STA (13:36)
--- NOTE | 2021-01-18 13:48 | Discharge Summary ---
Date of Service January 18, 2021 Admission HPI Per Admitting Provider 65yo female with history of left-sided MCA territory stroke in 09/2016 with resulting right-sided hemiparesis - s/p b/l CEAs due to severe ICA stenosis (95% on left, 90% on right per daughter - ongoing tobacco dependence, HTN, and hyperlipidemia presents with her daughter due to a host of symptoms. Symptoms began last January 08. At that time she noted numbness over the right outside of the right ear. This spread to the posterior auricular region and upper lateral right neck. She noted a right frontal headache at that time along with pain in her right jaw/teeth. She noted painful chewing but only on the right side of the oral cavity. She never had left-sided facial symptoms. Headache resolved by January 09. She never had right eye symptoms - no discomfort/pain, no ptosis, no injection, no visual loss. She was seen by an urgent care in [place], [place] on that Sunday and was told to f/u with her PCP. Dental abscess was ruled out at that time. January 10 she was seen by her PCP. It sounds as if blood work and a carotid duplex were ordered due to the symptoms reported. January 12 the daughter noted that her mother tried to orange picker something with her left hand and the left hand was transiently weak. As the week went on she continued to have numbness over the right ear region, continued having pain with chewing (right side of mouth only), and the teeth were still bothering her. January 15 - daughter noted her mother was very sleepy. Daughter finally got the carotid doppler results and was told her mother had significant blockages again. Today the patient and her daughter drove from [place] to [place]. 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 While in the car the daughter noted that her mother's left face looked droopy. She also thought her mother had tongue deviation. Speech was modestly slurry. She at one point was drooling a little as well. Finally, she had several minutes of not responding to her name being called. Her eyes were open during the event. She had no seizure activity. At that point the daughter brought her to the hospital for evaluation. Finally, the patient has had several episodes of dizziness/lightheadedness over the last couple of weeks. In ER I performed b/l upper extremity pressures and the left was significantly higher than the right (70 point difference). Admission Exam Per Admitting Provider Constitutional: no acute distress and no altered mental status Eyes: + conjunctival abnormality (slight injection - left eye ), PERRL and EOM intact bilaterally; no nystagmus left upper eyelid modestly droopy; right upper eyelid wnl ENMT: Ears: + external ear abnormality (both pinnae injected but no tenderness ); no EAC abnormality and no TM abnormality Mouth: no oral mucosal abnormality, oral mucous membranes not dry and TMJ nontender no dental abscess; no sinus tenderness Neck: trachea midline, no thyromegaly b/l carotid bruits Respiratory: + labored breathing (gets dyspneic with just moving in bed) Auscultation: + wheezes; no crackles Cardiovascular: Rate/Rhythm: regular rhythm and + tachycardic Heart Sounds: normal S1 and normal S2; no murmur Vessels: posterior tibial pulses present, dorsalis pedis pulses present and radial pulses present (radial pulse on right nearly absent; left 1-2+); no JVD Extremities: no edema Gastrointestinal (Abdomen): normal bowel sounds, soft, nontender, no hepatosplenomegaly Musculoskeletal: Extremities: + clubbing Skin: no rashes, warm and dry Neurologic: DTRs brisk x 4 extremities, slightly more so on right; +babinski on left, negative on right; strength RUE/RLE 4-5/5 strength; LUE/LLE 5/5; no obvious facial droop; tongue midline; EOMI; shoulder shrug symmetric; sensation intact V1/V2/V3 b/l; speech clear/fluent; finger/nose/finger maneuver w/o ataxia; mild apraxia of facial movements Psychiatric: Orientation: alert, oriented to person and oriented to place Lymphatic: no cervical lymphadenopathy Principal Diagnosis Transient ischemic attack Discharge Exam GENERAL : No acute distress. Pleasant talkative EYES: No icterus, gaze conjugate NOSE: No evidence of epistaxis MOUTH: No lesions or candidiasis. No facial droop or slurred speech. Tongue is midline. NECK: Supple. Positive for carotid bruits LUNGS: CTA B/L, no wheezes, rales or rhonchi HEART: Regular, rate controlled ABDOMEN: Soft, NT, ND, BS Present EXTREMITIES: No LE edema, pedal pulses intact NEURO: A&OX3. No facial droop. Weakness on the right side but patient able to move all 4 extremities. Gait and Romberg deferred Discharge Data Allergies Allergy/AdvReac Type Severity Reaction Status Date / Time No Known Allergies Allergy Unverified 01/16/21 15:53 Consultations 01/16/21 19:41 Consult Neurology Routine 01/16/21 20:40 Consult Vascular Surgery Routine 01/17/21 19:19 Burn CD for patient Routine Ordered Studies 01/16/21 16:12 CT angio head w con Stat CT angio neck with con Stat CT head/brain wo con Stat 01/16/21 18:15 US carotid doppler BI Stat 01/16/21 19:41 MR brain wo con Urgent Hospital Course (1) Stroke-like symptoms: Vascular studies show stenosis but unable to calculate secondary to motion artifact Most of the symptoms patient presented with are resolved Patient with large MCA stroke in September 2016 with bilateral endarterectomies in 2016 Long discussion with daughter on the telephone today. Suggested that she get follow-up with vascular surgery in [place] as she does not want to go to [facility] We will provide a CD of all of her images while at [facility] We will also work with case management to help facilitate outpatient appointment with [place] vascular surgery Continue aspirin, clopidogrel, and atorvastatin Did well with physical therapy (2) Vertebral artery stenosis: Follow-up with vascular surgery at [place] as an outpatient (3) Subclavian arterial stenosis: Follow-up with vascular surgery at [place] as an outpatient (4) TIA (transient ischemic attack): Right-sided weakness which is similar to residual effects from large MCA territorial stroke from 2016 Continue physical therapy as an outpatient as approved by Medicaid Continue to recommend smoking cessation Follow-up with neurology as an outpatient (5) Tobacco dependence: Nicotine patch currently in place Recommend full abstention from tobacco products (6) Essential (primary) hypertension: Will allow for some permissive hypertension while inpatient due to resolution of symptoms Continue usual home medications (7) Hypomagnesemia: Repleted with magnesium sulfate Check repeat magnesium with a.m. labs Total Time Total Time Spent Total Time Spent (In Minutes): 34 Total Time Includes: Examination of the Patient, Discharge Planning, Medication Reconciliation and Communication With Other Providers Discharge Plan Discharge Items Patient Disposition: Home - Self-Care Reason For Visit: TIA VS STROKE Discharge Diagnosis: Transient ischemic attack Activity: Resume your previous activity Lifting: Gradually increase as tolerated Bathing: No limitations Sexual Activity: When tolerated Exercise/Sports: Gradually increase as tolerated Weightbearing: Full weightbearing Non-emergency contact: Primary Care Provider Call non-emergency contact if: your symptoms worsen, your pain is not controlled and you have a fever Follow-up/Referrals: Paula Vásquez CRNP [Primary Care Provider] - Diet: Heart Healthy Addtl Attending Provider Instructions: You were admitted with strokelike symptoms which were similar to previous stroke with your MCA territorial infarct. All imaging performed at [facility] showed chronic changes but no acute changes. You did have a CT angiogram of the head and neck which showed some obstruction but there was motion artifact so is unclear if there were any significant changes. You are also seen by a neurologist and it is advised that you continue aspirin at 81 mg daily and continue your atorvastatin. You will also be started on clopidogrel (Plavix). Both the Plavix and the aspirin keep your blood from clotting and can result in bleeding if you have a fall or get cut. Please exercise caution at all times while on these medications. You should stop taking your meloxicam. This medication is known to cause gastritis. Should you develop an ulcer while on Plavix and aspirin you can have significant bleeding. You are also being started on pantoprazole (Protonix) and omeprazole is being stopped. Your CT angiogram of the head and neck was reviewed by vascular surgeon. He is recommending follow-up imaging. We have also contacted [facility] per your request to help arrange for outpatient follow-up. They will be contacting you at home with your follow-up appointment. Your urinalysis on admission showed possibility of infection. You were started on ceftriaxone and received 3 days of treatment. At the time of discharge you indicated you had no further symptoms. You are not being discharged with any additional antibiotics at this time. Should you develop blood in your urine or have symptoms of urinary tract infection, please contact your primary care provider for follow-up. We discussed quitting smoking. A prescription for a nicotine patch is being sent to the [facility] pharmacy in [place]. Oftentimes this is not covered by insurance. If you should choose to have this prescription filled, you should remove the patch each night before bedtime and put a new patch on in the morning. You should not smoke while wearing the patch. You should also discuss quitting smoking with your primary care physician for additional support and follow-up. Pending Studies at Discharge: No Stand-Alone Forms: Medications to Prevent Stroke, My [facility], Smoking Cessation Medications and DC Order Prescriptions: New clopidogrel 75 mg Tablet 75 mg PO QAM Qty: 30 RF: 0 nicotine 7 mg/24 hr Patch 24 Hour 14 mg transdermal QAM Qty: 7 RF: 0 aspirin 81 mg Tablet,Delayed Release (Dr/Ec) 81 mg PO DAILY Qty: 30 RF: 0 pantoprazole 40 mg Tablet,Delayed Release (Dr/Ec) 40 mg PO QAM Qty: 30 RF: 0 nicotine [Nicoderm CQ] 7 mg/24 hr patch 24 hour 1 patch transdermal DAILY Qty: 7 RF: 0 Continued multivitamin Tablet 1 tab PO DAILY RF: 0 atorvastatin 80 mg Tablet 80 mg PO DAILY RF: 0 gabapentin 600 mg Tablet 600 mg PO DAILY RF: 0 fexofenadine 180 mg Tablet 180 mg PO DAILY RF: 0 amitriptyline 50 mg Tablet 50 mg PO HS RF: 0 docusate sodium 100 mg Capsule 100 mg PO BID RF: 0 furosemide 20 mg Tablet 40 mg PO DAILY PRN (Reason: Edema) RF: 0 polyethylene glycol 3350 17 gram/dose Powder 17 g PO DAILY RF: 0 fluticasone propionate 50 mcg/actuation [place],Suspension 2 spray INTRANASAL DAILY RF: 0 amlodipine-benazepril 10-40 mg Capsule 1 cap PO DAILY RF: 0 Discontinued aspirin 325 mg Tablet 325 mg PO DAILY RF: 0 meloxicam 15 mg Tablet 15 mg PO DAILY RF: 0 omeprazole 20 mg Capsule,Delayed Release(Dr/Ec) 20 mg PO DAILY RF: 0 Discharge Orders: Discharge Order (Routine); Ordered 01/18/21 Ordered By: Sergey Renee/Other Patient Handouts: 5 Steps for Eating Healthier, A1C Admission Data Admit Date/Time: 01/16/21 18:25 Attending Provider: Tc Garcia Admit Provider: Antonio Alcantara Primary Care Provider: Paula Vásquez Other Providers: Matthew George ; Nicholas Johnson Other Interventions: Discharge Summary Assessment (RN) Last Done: 01/18/21 14:34 Supervising Physician Co-Signing Physician Notes Patient seen and examined on the day of discharge. I agree with the discharge summary by Sergey VILLATORO. I have reviewed the chart including labs, imaging and plans for discharge. patient feeling better, no residual stroke like symptoms she understands the importance of follow up with vascular surgery Sergey VILLATORO discussed plan with her daughter over the phone - TIA: symptoms resolved typical secondary stroke prevention with aspirin, Plavix, high dose Lipitor, blood pressure control - Atherosclerosis, carotid artery disease/stenosis h/o bilateral carotid endarterectomies recommend follow up with vascular surgeon continue aspirin, Plavix, Lipitor Coding Level of Care Code D/C Day Management >30 mins Diagnoses Stroke-like symptoms R29.90 Vertebral artery stenosis I65.09 Subclavian arterial stenosis I77.1 TIA (transient ischemic attack) G45.9 Tobacco dependence F17.200 Essential (primary) hypertension I10 Hypomagnesemia E83.42 Time Spent (min) 34
--- NOTE | 2021-01-18 14:57 | Pharmacy Report ---
Pharmacist Stroke Counseling - Date of Service January 18, 2021 - Scope: Pharmacy has been consulted to provide medication discharge counseling for this patient admitted with possible TIA as per the Pharmacist Discharge Counseling for Stroke Patients Protocol. - Medications on Discharge: Home Medications Medication Instructions Recorded Confirmed amitriptyline 50 mg PO HS 01/16/21 01/16/21 amlodipine-benazepril 1 cap PO DAILY 01/16/21 01/16/21 atorvastatin 80 mg PO DAILY 01/16/21 01/16/21 docusate sodium 100 mg PO BID 01/16/21 01/16/21 fexofenadine 180 mg PO DAILY 01/16/21 01/16/21 fluticasone propionate 2 spray INTRANASAL DAILY 01/16/21 01/16/21 furosemide 40 mg PO DAILY PRN 01/16/21 01/16/21 gabapentin 600 mg PO DAILY 01/16/21 01/16/21 multivitamin 1 tab PO DAILY 01/16/21 01/16/21 polyethylene glycol 3350 17 g PO DAILY 01/16/21 01/16/21 New Rx's Medication Instructions Recorded aspirin 81 mg PO DAILY #30 tab 01/18/21 clopidogrel 75 mg PO QAM #30 tab 01/18/21 nicotine 14 mg TRANSDERMAL QAM #7 ea 01/18/21 nicotine [Nicoderm CQ] 1 patch TRANSDERMAL DAILY #7 ea 01/18/21 pantoprazole 40 mg PO QAM #30 tab 01/18/21 - Action: The above medications, specifically ones for stroke treatment/prophylaxis, have been reviewed in detail with the patient and/or patient customer care representative(s) prior to discharge. This includes indication, common adverse reactions, drug interactions, and medication administration. Medication counseling has been employed using the teach-back method to ensure understanding. - Outcome: The patient and/or patient customer care representative(s) have demonstrated understanding of the medications. Additional comments: Discussed change in aspirin dosage, addition of plavix, change in PPI and nicotine patches. Also discussed complete therapy for UTI with ceftriaxone x 3 days, no additional abx to be prescribed. Patient reports daughter helps with medications, if she has any questions can call and ask to speak with pharmacist, she had no further questions. Thank you for allowing pharmacy to be involved in the care of this patient. Please call [phone] with any additional questions
== END 2021-01-18 15:08 | disposition home or self-care (01) | DRG 69 ==
LOC: ED 15:25 → 2S 18:25 → SUATTDRO 18:25 → 2S 19:18